=== PATIENT | female | born 1960 | race Caucasian/White ===

== ENCOUNTER 2025-04-24 21:55 | Inpatient (IN) | payer OTHER, SELFPAY ==
[2025-04-24 14:06] VITALS: BP 116/71
[2025-04-24 16:44] VITALS: BP 102/68
[2025-04-24 17:37] VITALS: BMI 31.9
--- NOTE | 2025-04-24 17:40 | ED.GENMED ---
History of Present Illness
<Cong Rogers PA-C - Last Filed: 04/24/25 20:04>
General
Chief Complaint: Urinary Symptoms
Source: patient
Exam Limitations: none
Time Seen by Provider: 04/24/25 17:24
History of Present Illness
History of Present Illness:
64-year-old female with history of factor cholesterolemia, hypothyroid and anxiety depression presents complaining of about 3 days worth of urinary symptoms of urgency dysuria dark urine and bilateral flank pain. She notes chills but denies any
fever. No vomiting. [facility] work drawn there which demonstrated elevated white blood cell count and urinalysis showed nitrite positive urine. They were concerned about kidney infection and they sent
her here. Patient has never had a kidney stone in the past. She denies chest pain or shortness of breath but admits that she is in a lot of pain. The pain is more so on the right flank than the left but it is bilateral. She has a listed
penicillin allergy however this is just a rash
Phy Exam
<Cong Rogers PA-C - Last Filed: 04/24/25 20:04>
Physical Exam
Physical Exam:
General: Slightly uncomfortable female no acute respiratory distress
HEENT: Normal cephalic atraumatic mucosa dry
Heart: Regular rate and rhythm lungs: Clear no wheeze abdomen soft but tender to the bilateral flanks and lower quadrants bilaterally
Extremities: No cyanosis or significant edema
Course
<Cong Rogers PA-C - Last Filed: 04/24/25 20:04>
Orders/Labs/Results
Orders:
Orders
04/24/25 16:58
Urinalysis Reflex To Culture Urgent
Date Specimen was Collected: 04/24/25
Time Specimen was Collected: 14:05
Urine Microscopic Reflex Cult Urgent
Urine Culture Urgent
DUSTIN Source: U
Specimen Description:
Date Specimen was Collected: 04/24/25
Time Specimen was Collected: 14:05
04/24/25 17:38
0.9% Sodium Chloride 1000 ml [Nss] 1,000 ml IV BOLUS
04/24/25 17:39
CT Abd/pelvis W Iv Cont Urgent
Comment:
Reason For Exam: flank pain, urinary symptoms
04/24/25 17:46
Complete Blood Count/With Diff Urgent
Comprehensive Metabolic Panel Urgent
Lactic Acid Urgent
Lipase Urgent
Blood Culture Q30M
DUSTIN Source: Blood/Venous
Specimen Description:
Blood Culture Q30M
DUSTIN Source: Blood/Venous
Specimen Description:
04/24/25 19:50
HYDROmorphone [Dilaudid] 0.5 mg IV NOW STA
04/24/25 19:51
Piperacillin/Tazo 3.375 Gram [Zosyn] 3.375 gram in 50 ml IV NOW
04/24/25 20:00
Add On- LAB Urgent
Tests Added?: lipase
Abnormal Lab Results
04/24/25 04/24/25
16:58 17:46
WBC 12.5 H 10^3/uL
(4.8-10.8)
Abs Immat Gran (auto) 0.1 H 10^3/uL
(0-0.05)
Absolute Neuts (auto) 10.0 H 10^3/uL
(1.4-6.5)
Absolute Monos (auto) 1.0 H 10^3/uL
(0.1-0.6)
Neutrophils % 79.5 H %
(42.2-75.2)
Lymphocytes % 11.4 L %
(20.5-51.1)
Sodium 133 L mmol/L
(135-145)
Potassium 3.4 L mmol/L
(3.5-5.1)
Chloride 96 L mmol/L
(98-107)
BUN 18 H mg/dl
(7-17)
Creatinine 1.1 H mg/dL
(0.6-1.0)
Glucose 147 H mg/dl
(70-99)
Total Bilirubin 4.7 H mg/dl
(0.2-1.3)
AST 1063 H* U/L
(14-36)
ALT 619 H* U/L
(0-35)
Alkaline Phosphatase 201 H U/L
(38-126)
Ur Occult Blood Reflex 3+ A
(Negative)
Urine Bilirubin 2+ A
(Negative)
Urine Urobilinogen 3+ A
(Neg - 1+)
Leukocyte Esterase Rfl 2+ A
(Negative)
Urine RBC 3-6 A /HPF
(0-2)
Urine WBC (Reflex) 11-15 A /HPF
(0-5)
Urine Bacteria (Reflex) Moderate A
(Negative)
Urine Albumin (Reflex) 3+ A
(Neg - Trace)
04/24/25 17:46
04/24/25 17:46
Vital Signs
Initial and Last Documented VS:
Initial Vital Signs
Temp Pulse Resp Pulse Ox
98.4 F 105 19 98
04/24/25 14:00 04/24/25 14:00 04/24/25 14:00 04/24/25 14:00
Last Documented Vital Signs
Temp Pulse Resp BP Pulse Ox
98.4 F 97 17 120/64 97
04/24/25 14:00 04/24/25 19:45 04/24/25 19:45 04/24/25 18:00 04/24/25 18:45
Tariklt;Brijesh Hammond, DO - Last Filed: 04/24/25 21:01>
Orders/Labs/Results
Orders:
Orders
04/24/25 16:58
Urinalysis Reflex To Culture Urgent
Date Specimen was Collected: 04/24/25
Time Specimen was Collected: 14:05
Urine Microscopic Reflex Cult Urgent
Urine Culture Urgent
DUSTIN Source: U
Specimen Description:
Date Specimen was Collected: 04/24/25
Time Specimen was Collected: 14:05
04/24/25 17:38
0.9% Sodium Chloride 1000 ml [Nss] 1,000 ml IV BOLUS
04/24/25 17:39
CT Abd/pelvis W Iv Cont Urgent
Comment:
Reason For Exam: flank pain, urinary symptoms
04/24/25 17:46
Complete Blood Count/With Diff Urgent
Comprehensive Metabolic Panel Urgent
Lactic Acid Urgent
Lipase Urgent
Blood Culture Q30M
DUSTIN Source: Blood/Venous
Specimen Description:
Blood Culture Q30M
DUSTIN Source: Blood/Venous
Specimen Description:
04/24/25 19:50
HYDROmorphone [Dilaudid] 0.5 mg IV NOW STA
04/24/25 19:51
Piperacillin/Tazo 3.375 Gram [Zosyn] 3.375 gram in 50 ml IV NOW
04/24/25 20:00
Add On- LAB Urgent
Tests Added?: lipase
Abnormal Lab Results
04/24/25 04/24/25
16:58 17:46
WBC 12.5 H 10^3/uL
(4.8-10.8)
Abs Immat Gran (auto) 0.1 H 10^3/uL
(0-0.05)
Absolute Neuts (auto) 10.0 H 10^3/uL
(1.4-6.5)
Absolute Monos (auto) 1.0 H 10^3/uL
(0.1-0.6)
Neutrophils % 79.5 H %
(42.2-75.2)
Lymphocytes % 11.4 L %
(20.5-51.1)
Sodium 133 L mmol/L
(135-145)
Potassium 3.4 L mmol/L
(3.5-5.1)
Chloride 96 L mmol/L
(98-107)
BUN 18 H mg/dl
(7-17)
Creatinine 1.1 H mg/dL
(0.6-1.0)
Glucose 147 H mg/dl
(70-99)
Total Bilirubin 4.7 H mg/dl
(0.2-1.3)
AST 1063 H* U/L
(14-36)
ALT 619 H* U/L
(0-35)
Alkaline Phosphatase 201 H U/L
(38-126)
Ur Occult Blood Reflex 3+ A
(Negative)
Urine Bilirubin 2+ A
(Negative)
Urine Urobilinogen 3+ A
(Neg - 1+)
Leukocyte Esterase Rfl 2+ A
(Negative)
Urine RBC 3-6 A /HPF
(0-2)
Urine WBC (Reflex) 11-15 A /HPF
(0-5)
Urine Bacteria (Reflex) Moderate A
(Negative)
Urine Albumin (Reflex) 3+ A
(Neg - Trace)
04/24/25 17:46
04/24/25 17:46
Vital Signs
Initial and Last Documented VS:
Initial Vital Signs
Temp Pulse Resp Pulse Ox
98.4 F 105 19 98
04/24/25 14:00 04/24/25 14:00 04/24/25 14:00 04/24/25 14:00
Last Documented Vital Signs
Temp Pulse Resp BP Pulse Ox
98.4 F 97 17 120/64 97
04/24/25 14:00 04/24/25 19:45 04/24/25 19:45 04/24/25 18:00 04/24/25 18:45
<Cong Rgoers PA-C - Last Filed: 04/24/25 20:04>
MDM/Problems Addressed
Differential Diagnosis Includes:
Patient with urinary symptoms overall ill sensation and flank pain. Concern for UTI versus pyelonephritis versus kidney stone versus sepsis check labs including lactic acid and blood culture urinalysis with culture pending. Will order CT scan
fluids ordered
<Cong Rogers PA-C - Last Filed: 04/24/25 20:04>
*Pulse Oximetry
SaO2: 94
Patient hypoxic: no
*Critical Care Note
Total Time (30-74mins, 75-104mins- exclusive of procedures): Not Applicable
<Cong Rogers PA-C - Last Filed: 04/24/25 20:04>
Update Note
Update Note:
CT reviewed. Demonstrates acute cystitis with acute cholecystitis and possible cholangitis. Patient quite uncomfortable. Dilaudid ordered for pain. Fluids ordered Zosyn ordered. Patient notes she has a penicillin allergy which years ago when
she was a child she got a rash. She believes she has had a similar equivalent to this as an adult and never had an issue. Zosyn ordered.
ED Attending Note
<Cong Rogers PA-C - Last Filed: 04/24/25 20:04>
-
Portions of this chart may have been created with voice recognition software.� Occasional wrong word or��sound alike� substitutions may have occurred due to the inherent limitations of voice recognition software.
<Brijesh Hammond DO - Last Filed: 04/24/25 21:01>
ED Attending Note
Patient seen and examined by attending physician: Yes
I performed the substantive portion of visit, reviewed & personally made and approve the management plan that is documented in note by myself or MEGAN.: Yes
ED Attending Note:
Seen with PA examined independently subacute onset of abdominal pain nausea, LFTs noted CT report noted
Discharge Plan
Departure
Patient Disposition: Admit
Date of Disposition: 04/24/25
Time of Disposition: 20:04
Presentation/result/management discussed w/ accepting MD/DO: Hospitalist
Discharge Problem:
Acute cholecystitis
Referrals:
NONE,* [Family Provider, Internal Medicine]
Interventions
Interventions:
*General Assessment Last Done: 04/24/25 14:04
*Neglect/Abuse Screening Last Done: 04/24/25 14:04
*ED COVID-19 Vaccine History Last Done: 04/24/25 14:04
*ED Influenza Vaccine History Last Done: 04/24/25 14:04
[facility] Fall Risk Assessment Tool Last Done: 04/24/25 17:37
*Risk Screen - Suicide (C-SSRS) Last Done: 04/24/25 14:04
ED-Female Genitourinary Assessment Last Done: 04/24/25 17:31
ED- Pulmonary Assessment Last Done: 04/24/25 17:31
Discharge Date and Time
Print Language: HONDURAN
[2025-04-24] MEDS: NSS 1000 IV (17:45)
[2025-04-24 17:56] LABS: Hematocrit 40.7 % (37.0-47.0); Hemoglobin 13.9 g/dL (12.0-16.0); Mean Corp Hgb Conc. 34.2 g/dL (33.0-37.0); Mean Corpuscular Volume 89.3 fL (81.0-99.0); Nucleated Red Blood Cells % 0 %; Platelet Count 230 10^3/uL (130-400); Red Cell Dist. Width 13.7 % (11.5-14.5)
[2025-04-24 18:00] VITALS: BP 120/64
[2025-04-24 18:07] LABS: Urine Character Clear (Clear)
[2025-04-24 18:15] LABS: ALT (SGPT) 619 U/L (0-35); Albumin 4.4 g/dl (3.5-5.0); Alkaline Phosphatase 201 U/L (38-126); Blood Urea Nitrogen 18 mg/dl (7-17); Calcium 9.4 mg/dl (8.4-10.2); Carbon Dioxide 26 mmol/L (22-30); Chloride 96 mmol/L (98-107); Estimated Creatinine Clearance 52 ml/min; Glucose 147 mg/dl (70-99); Potassium 3.4 mmol/L (3.5-5.1); Sodium 133 mmol/L (135-145); Total Protein 6.7 g/dl (6.3-8.2); eGFR 56.81
[2025-04-24 18:26] LABS: AST (SGOT) 1063 U/L (14-36)
[2025-04-24 18:31] LABS: Urine Squamous Cell >30 /LPF (Few)
[2025-04-24] MEDS: ZOSYN 50 IV (19:55)
[2025-04-24] MEDS: DILAUDID 0.5 MG IV ×2 (19:56→21:21)
[2025-04-24 21:07] LABS: Lipase > 4000 U/L (23-300)
--- NOTE | 2025-04-24 21:16 | HPS.HSE ---
Family Physician
-
Family Physician: * NONE
Chief Complaint
-
Abdominal pain and urinary symptoms
History of Present Illness
This is a 64-year-old with past medical history significant for status post AUTOMATIC TOE LASTER shunt, hypertension and hyperlipidemia who presents to the emergency department with worsening abdominal pain.
Patient reports that she has had intermittent right upper quadrant pain for the last month. However over the last 3 days she had severe right upper quadrant abdominal pain but also diffuse abdominal pain with associated nausea vomiting. She denies
any diarrhea. She denies any fevers or chills. She denies any changes to the color of her urine or stool.
Patient report history of recurrent urinary tract infections and states that recently she has had urinary urgency and hesitancy as well as dysuria.
On arrival in the emergency department she was afebrile, blood pressure was 120/64 with a pulse rate of 97 and oxygen saturation of 97% on room air.
White count was 12.5 with a hemoglobin of 13.9 platelet of 230. Sodium was 133 potassium 3.4 chloride 96 bicarb 26 BUN and creatinine were normal with a glucose of 147. Total bilirubin is up to 4.7 with AST of 1000 and ALT of 619 and alk phos of
200. Lipase is pending.
CT of the abdomen and pelvis showing acute cholecystitis with mild pericholecystic fluid and inflammation, there is also acute cystitis with mild diffuse urinary bladder wall thickening. There is mild biliary dilation and bile duct wall enhancement
possibly consistent with cholangitis. Mild diffuse hepatic steatosis.
Medical History
Past Medical History
Past Medical History: Reports Hypercholesterolemia and Other (Insomnia)
Past Surgical History: Reports Brain (AUTOMATIC TOE LASTER shunt placement with revision), (X 2), Gynocological (Hysterectomy) and Orthopedic (Cervical spine fusion)
Social History
Tobacco: Non-smoker
Alcohol: Occasional
Drug: None
Living: With Family
Family History
Family History: Not pertinent
Allergies / Home Medications
Allergies reflects when Allergies were last updated in [facility].
Home Medications with original date entered in [facility]
Allergy/Medication List:
Allergies
Allergy/AdvReac Type Severity Reaction Status Date / Time
Penicillins Allergy Hives Verified 04/24/25 14:02
sulfamethoxazole (From Allergy Hives Verified 04/24/25 14:02
Bactrim)
trimethoprim (From Bactrim) Allergy Hives Verified 04/24/25 14:02
Zolpidem 12.5 mg tablets, 12.5 mg p.o. at bedtime
Rosuvastatin 10 mg tablets, 10 mg p.o. at bedtime
Review of Systems
-
Constitutional: Reports No Symptoms
EENT: Reports No Symptoms
Respiratory: Reports No Symptoms
Cardiac: Reports No Symptoms
Abdomen/GI: Reports Abdominal Pain and Vomiting
: Reports Dysuria and Urgency
Musculoskeletal: Reports No Symptoms
Skin: Reports No Symptoms
Neurological: Reports No Symptoms
Endocrine: Reports No Symptoms
Hematologic/Lymphatic: Reports No Symptoms
Psych: Reports No Symptoms
Physical Exam
Vital Signs
Vital Signs
Temp Pulse Resp BP Pulse Ox
98.4 F 97 17 120/64 97
04/24/25 14:00 04/24/25 19:45 04/24/25 19:45 04/24/25 18:00 04/24/25 18:45
Physical Exam
General: Well Developed, Well Nourished and No Apparent Distress
HEENT: NormoCephalic, Moist mucous membranes and Atraumatic
Respiratory: Clear
Cardiac: S1/S2 and Regular Rhythm; No Murmur or Rub
GI: Soft, Non Tender, Non Distended and Normal Bowel Sounds; No Organomegaly
Rectal: Deferred by Provider
Musculoskeletal: No Clubbing, No Cyanosis and No Edema
Skin: No Rash
Neuro: AO x 3 and Nonfocal/grossly intact
Laboratory Results
-
04/24/25 17:46
04/24/25 17:46
Laboratory Results
Lactic Acid 1.6 mmol/L (0.7-2.0) 04/24/25 17:46
Total Bilirubin 4.7 mg/dl (0.2-1.3) H 04/24/25 17:46
AST 1063 U/L (14-36) H* 04/24/25 17:46
ALT 619 U/L (0-35) H* 04/24/25 17:46
Alkaline Phosphatase 201 U/L (38-126) H 04/24/25 17:46
Lipase > 4000 U/L (23-300) H* 04/24/25 17:46
Data Reviewed
-
CT Scan: Report Reviewed by me
Lab Data: Labs Reviewed by me
Old Records: Reviewed
Impression/Plan
-
IMPRESSION:
64-year-old with past medical history of AUTOMATIC TOE LASTER shunt, hypertension, hyperlipidemia who presents to the emergency department with abdominal pain as well as urinary symptoms and found to have acute cystitis, possible cholangitis with elevated LFTs and
bilirubin as well as acute cystitis on the CT scan.
PLAN:
Acute cholecystitis -definite high-grade cholecystitis on CT scan with a WBC of 12.4. She is hemodynamically stable and nontoxic-appearing. With the elevation seen at the bilirubin and AST and ALT there is concern for biliary obstruction and
possible complicating cholangitis. Patient reports history of penicillin allergy was over 30 years ago. She also states that since her AUTOMATIC TOE LASTER shunt she has had multiple MRIs.
� Admit to MedSurg
� N.p.o. for now
� IV Zosyn
� Blood cultures sent
� Pain control and antiemetics
� IV fluids with D5 normal saline
� MRCP
� GI consultation
� Surgery consultation
Cystitis�acute cystitis with urinary symptoms. No stones in the gallbladder and no urinary obstruction patient will be fine with IV antibiotics
� Urine culture
� Continue IV Zosyn as above
DVT PPX - lovenox sq
Code status - Full Code
[2025-04-24 22:11] VITALS: BMI 30.8
[2025-04-24] MEDS: KCL 160 MEQ IV (22:14)
[2025-04-24] MEDS: D5/0.9% SODIUM CHLORIDE 1000 IV (22:14)
[2025-04-24] MEDS: AMBIEN 10 MG PO (22:15)
[2025-04-24 23:00] VITALS: BP 112/69
--- NOTE | 2025-04-24 23:30 | PTCARENOTE ---
Pt is a 64-year-old arrived from ED at 21:50. PMH significant for status post BRAZER INDUCTION shunt, HTN and HLD who presents to the ED with worsening abdominal pain. Pt AOx3, pain assessed and patient states no pain meds needed at present, bed in a low
position, call light in reach, care ongoing
[2025-04-25] MEDS: ZOSYN 50 IV ×4 (01:17→20:23)
[2025-04-25] MEDS: DILAUDID 1 MG IV ×4 (01:20→20:18)
[2025-04-25 06:23] LABS: Hematocrit 36.0 % (37.0-47.0); Hemoglobin 12.4 g/dL (12.0-16.0); Mean Corp Hgb Conc. 34.4 g/dL (33.0-37.0); Mean Corpuscular Volume 89.1 fL (81.0-99.0); Platelet Count 198 10^3/uL (130-400); Red Cell Dist. Width 13.6 % (11.5-14.5)
--- NOTE | 2025-04-25 06:26 | CON.GI ---
Addendum entered and electronically signed by Edna Fortune MD 04/25/25 16:19:
Ultrasound reviewed and is negative for any obvious CBD stone or ductal dilatation. Given that her LFTs have markedly improved she may have passed a stone will start her on clear liquids and timing of cholecystectomy will be per surgery. If her
LFTs start to trend up again then will transfer for EUS and ERCP to [place].
04/25 US IMPRESSION: Gallbladder sludge. Borderline thickened gallbladder wall. No findings to suggest pericholecystic fluid or biliary tract dilatation. Negative sonographic Allen's sign.
No findings to confirm choledocholithiasis.
Findings suggesting diffuse fatty liver.
Addendum entered and electronically signed by Edna Fortune MD 04/25/25 15:11:
I saw and examined the patient.
The CHRISTIAN SCIENCE PRACTITIONER's note was reviewed and I agree with the note.
Comment: This is a 64-year-old female with past medical history as listed below who presented to the emergency room with symptoms dysuria and also was having abdominal pain and was noted to have leukocytosis, fever, positive UTI and also was noted
to have abnormal LFTs and CT showed findings consistent with probable cholangitis and cholecystitis and cystitis. She has been started on antibiotics. Her lipase was also elevated at greater than [address] shows probable chronic pancreatitis
although she has no prior history of pancreatitis. She still has epigastric and right upper quadrant pain but her pain is improving and her LFTs have actually been trending down. Unfortunately we are unable to get an MRI with MRCP she has a RESEARCH ASSISTANT
shunt and the waste management recycling technician that is able to check it after the MRI was unavailable.
Assessment and plan abdominal pain, fever with abnormal LFTs and elevated lipase most likely secondary to acute cholecystitis and probable cholangitis with choledocholithiasis with acute GS pancreatitis. Her LFTs have markedly improved suggesting
possible passed stone. Continue treatment for pancreatitis with IV fluids with lactated Ringer's and continue to monitor I's and O's closely. Unable to perform EUS since Dr. Awan is away this week and unable to get an MRI because of the RESEARCH ASSISTANT shunt.
Will follow-up on the ultrasound and if she has evidence of obvious CBD stone can do ERCP tomorrow but if it is inconclusive then may need to transfer for possible EUS to [place] plus or minus ERCP based on EUS, trend labs with LFTs and lipase. Noted
input from Dr. Malagon also. Continue to keep her n.p.o. for now and continue Zosyn, she also has a UTI.
Original Note:
Consultation
-
Date/Time Consultation Requested: 04/24/25 220
Date/Time Consultation Performed: 04/25/25 0900
Requesting Provider: Elissa Goel MD
Performing Provider: MAC De Paz, Edna Fotrune MD
Reason for Consultation: increased LFT's eval cholangitis
Medical History
Chief Complaint / HPI
Chief Complaint: abdominal pain
History of Present Illness:
Pt is a 64yo with hx HTN, hyperlipidemia, insomnia, colon polyp, RESEARCH ASSISTANT shunt with revision for hydrocephalus, prior cervical spinal fusion, hysterectomy with onset of abdominal pain. She if from [place] visit father who is on hospice. She report
recent UTI with urgency and dysuria and admit to dark urine with ? blood. On admission noted with WBC 12,500, hbg 13,9, Na 133, K 3.4, creat 1.1, bili 4.7, AST 1063, ALT 619, alk phos 201 and lipase >4000. UA noted with + bili, + WBC, moderate
bacteremia. She completed CT on admission with concern for acute cystitis, acute cholecystitis and biliary dilation with possible cholangitis. She was also noted with hepatic steatosis, mild ascites, chronic pancreatitis, SM, RESEARCH ASSISTANT shunt and DDD. No
prior hx pancreatitis, family hx pancreatic issues or ETOH use.
In review with patient she admits to intermittent abdominal pain for a few weeks. Pain now 10/10 on admission with worsening RUQ and epigastric pain. Worse with movement and improved with pain meds. She also admits to dark urine. She has
some nausea and vomiting on Thursday that has now improved. She also admits to feeling of constipation but denies dysphagia, GERD, diarrhea, or rectal bleeding. No NSAID or anticoagulation use. No wt loss. Pt was for MRI but unable to do with hx
RESEARCH ASSISTANT shunt.
.
Past Medical History
Past Medical History: HTN, Hypercholesterolemia and Other (insomnia, colon polyps)
Past Surgical History: , Gynecological (hysterectomy), Orthopedic (cervical spinal fusion) and Other (RESEARCH ASSISTANT shunt with revision for hydrocephalus )
Social History
Tobacco: Non-Smoker
Alcohol: Occasional (rare)
Drug: None
Personal:
Living: With Family
Employment: Retired
Family History
Family History: Other (mother with bladder CA)
Allergies / Home Medications
Allergy/AdvReac Type Severity Reaction Status Date / Time
Penicillins Allergy Hives Verified 04/24/25 14:02
sulfamethoxazole (From Allergy Hives Verified 04/24/25 14:02
Bactrim)
trimethoprim (From Bactrim) Allergy Hives Verified 04/24/25 14:02
Review of Systems
-
History Source: Patient
Constitutional: Reports Fever (100.7 )
EENT: Reports No Symptoms
Respiratory: Reports No Symptoms
Abdomen/GI: Reports Abdominal Pain, Nausea, Vomiting and Constipated
: Reports Dysuria, Urgency and Dark Urine
Musculoskeletal: Reports No Symptoms
Neurological: Reports Weakness
Endocrine: Reports No Symptoms
Hematologic/Lymphatic: Reports No Symptoms
Vital Signs
Temp Pulse Resp BP Pulse Ox
98.1 F 97 16 112/69 94
04/24/25 23:00 04/24/25 23:00 04/24/25 23:00 04/24/25 23:00 04/24/25 23:00
Physical Exam
Exam
General: Other (appears weak with abdominal pain )
HEENT: Normocephalic, Anicteric and Other (dry mouth)
Respiratory: Clear
Cardiac: Other (tachy )
GI: Soft, Non Distended and Tender (epigastric and RUQ )
Musculoskeletal: No Clubbing and No Cyanosis
Skin: Warm and Dry
Neuro: Awake, Alert and AO x 3
Psych: Calm
Results
WBC 9.0 10^3/uL (4.8-10.8) 04/25/25 05:51
Hgb 12.4 g/dL (12.0-16.0) 04/25/25 05:51
Hct 36.0 % (37.0-47.0) L 04/25/25 05:51
MCV 89.1 fL (81.0-99.0) 04/25/25 05:51
Plt Count 198 10^3/uL (130-400) 04/25/25 05:51
Absolute Neuts (auto) 10.0 10^3/uL (1.4-6.5) H 04/24/25 17:46
Sodium 133 mmol/L (135-145) L 04/24/25 17:46
Potassium 3.4 mmol/L (3.5-5.1) L 04/24/25 17:46
Chloride 96 mmol/L (98-107) L 04/24/25 17:46
Carbon Dioxide 26 mmol/L (22-30) 04/24/25 17:46
BUN 18 mg/dl (7-17) H 04/24/25 17:46
Creatinine 1.1 mg/dL (0.6-1.0) H 04/24/25 17:46
Calcium 9.4 mg/dl (8.4-10.2) 04/24/25 17:46
Total Bilirubin 4.7 mg/dl (0.2-1.3) H 04/24/25 17:46
AST 1063 U/L (14-36) H* 04/24/25 17:46
ALT 619 U/L (0-35) H* 04/24/25 17:46
Alkaline Phosphatase 201 U/L (38-126) H 04/24/25 17:46
Lipase > 4000 U/L (23-300) H* 04/24/25 17:46
Diagnostic Image Results:
04/24/25 CT Abd/pelvis W Iv Cont
1. ACUTE CYSTITIS with mild diffuse urinary bladder wall thickening and mild perivesical inflammation.
2. ACUTE CHOLECYSTITIS with mild pericholecystic fluid and inflammation.
3. Mild biliary dilatation and bile duct wall enhancement (possibly cholangitis).
4. Mild diffuse hepatic steatosis.
5. Minimal perihepatic ascites.
6. Chronic pancreatitis.
7. Mild splenomegaly.
8. Ventriculoperitoneal shunt catheter in place.
9. Moderate discogenic degenerative disease at L2/L3.
Prior GI Procedures:
EGD: in [place] recall stable
Colonoscopy: in [place] recall polyps
Assessment / Plan
-
Pt is a 64yo with hx HTN, hyperlipidemia, insomnia, colon polyps, RESEARCH ASSISTANT shunt with revision for hydrocephalus, prior cervical spinal fusion, hysterectomy with onset of abdominal pain. She also report recent UTI with urgency and dysuria. On admission
noted with WBC 12,500, hbg 13,9, Na 133, K 3.4, creat 1.1, bili 4.7, AST 1063, ALT 619, alk phos 201 and lipase >4000. UA noted with + bili, + WBC, moderate bacteremia. She completed CT on admission with concern for acute cystitis, acute
cholecystitis and biliary dilation with possible cholangitis. She was also noted with hepatic steatosis, mild ascites, chronic pancreatitis, SM, RESEARCH ASSISTANT shunt and DDD. No hx pancreatitis in past. No family hx pancreatitis or ETOH use.
-abdominal pain with increased LFT's and lipase concern for possible cholangitis vs Gallstone pancreatitis
-leukocytosis/low grade fever
-Ct concern for cystitis
-additional CT finding hepatic steatosis, mild ascites, chronic pancreatitis, SM
-hyponatremia
-hypokalemia
-mild VANCE on admission
other med problems:
HTN, hyperlipidemia, insomnia, RESEARCH ASSISTANT shunt with revision, prior cervical spinal fusion, hysterectomy
PLAN:
etiology of symptoms related to cholecystis, gallstone panc, with possible cystitis vs other
reviewed with MRI unable to completed with RESEARCH ASSISTANT shunt, No EUS availability over next week at
will check US to see if any visible CBD stones noted
if stone noted with review with Dr. Donovan for ERCP
reviewed with Dr. malagon and Dr. Stover may need to consider transfer
will increased IVF to LR at 250ml and give Fluid bolus now
cont pain control per hospitalist
trend labs
NPO
cont abx
appreciate surgical consult
hospitalist to eval for cystitis possible concurrent UTI
-
-
Thank you for consultation and allowing me to participate in the patient's care. Please call the payroll consultant GI physician during the after hours with any questions or concerns.
[2025-04-25 06:39] LABS: INR 1.48; PT 18.1 Sec (11.4-14.6)
[2025-04-25 06:44] LABS: ALT (SGPT) 383 U/L (0-35); AST (SGOT) 377 U/L (14-36); Albumin 3.4 g/dl (3.5-5.0); Alkaline Phosphatase 180 U/L (38-126); Blood Urea Nitrogen 13 mg/dl (7-17); Calcium 8.6 mg/dl (8.4-10.2); Carbon Dioxide 25 mmol/L (22-30); Chloride 106 mmol/L (98-107); Estimated Creatinine Clearance 72 ml/min; Glucose 135 mg/dl (70-99); Magnesium 1.8 mg/dl (1.6-2.3); Potassium 3.7 mmol/L (3.5-5.1); Sodium 137 mmol/L (135-145); Total Protein 5.7 g/dl (6.3-8.2); eGFR > 60.00
--- NOTE | 2025-04-25 07:30 | W.PN.HOSP.TC ---
Today's Communication/Plan
-
Ultrasound abdomen.
Pain control.
Keep NPO.
Monitor liver enzymes
May transfer to tertiary center
Assessment / Plan
Assessment / Plan
Impression:
64-year-old with past medical history of IOS DEVELOPER shunt, hypertension, hyperlipidemia who presents to the emergency department with abdominal pain as well as urinary symptoms and found to have acute cystitis, possible cholangitis with elevated LFTs and
bilirubin as well as acute cystitis on the CT scan.
Assessment/plan:
Acute Cholecystitis/acute cholangitis
High-grade cholecystitis confirmed on imaging.
On arrival: afebrile, BP 120/64, HR 97, SpO? 97% RA.
Initial labs: WBC 12.5, Hgb 13.9, Plt 230. Electrolytes: Na 133, K 3.4, Cl 96, HCO? 26. BUN/Cr normal. Glucose 147.
LFTs: Total bilirubin 4.7, AST 1000, ALT 619, Alk Phos 200. Lipase >4000
CT abdomen/pelvis: acute cholecystitis with mild pericholecystic fluid and inflammation; mild biliary dilation and bile duct wall enhancement (possible cholangitis); mild diffuse hepatic steatosis; acute cystitis with mild bladder wall thickening.
Hemodynamically stable, nontoxic-appearing. Concern for biliary obstruction and possible cholangitis given elevated bilirubin and transaminases.
Allergy: remote penicillin allergy (>30 years ago).
History: IOS DEVELOPER shunt, multiple MRIs tolerated.
Plan:
Admitted to [facility]
NPO for now
IV Zosyn
Blood cultures
Pain control and antiemetics
IV fluids.
MRCP was not able to be done secondary to IOS DEVELOPER shunt, ultrasound abdomen pending
GI consulted/ Surgery consulted, possible transfer to tertiary center.
Acute pancreatitis.
Secondary to above.
Elevated lipase.
No CT finding of acute pancreatitis.
Continue n.p.o., IV fluid, IV antibiotics
Hyponatremia.
Improved
Hypokalemia.
Repleted
Acute Cystitis
cystitis noted on imaging; no stones, no urinary obstruction.
Plan:
Urine culture
Continue IV Zosyn as above
CODE STATUS: Full code
DVT prophylaxis: Lovenox
Diet: NPO
Disposition: Ultrasound abdomen pending
Total time spent on today's encounter was 55 minutes which included time spent in counseling the patient/family regarding diagnosis and treatment plan as listed above, goals of care, and symptom management. Case was discussed with nursing staff,
specialists, and care coordinators/case management. All labs and imaging personally reviewed by me. Remainder the time spent in detailed review of previous records, lab data, imaging, and other medical provider documentation.
Part of this note was created using voice recognition system. Occasional wrong word or �sound alike� substitutions may have inadvertently occurred due to the inherent limitations of voice recognition software. If noted kindly bring it to my
attention for correction.
Anticipated Discharge: > 48 hours
Subjective/Interval History
-
Date of Service: April 25, 2025
Patient seen and examined at bedside, denies any chest pain now (had a chest pain yesterday) or shortness of breath, still with significant abdominal pain.
Objective Data
-
Labs:
Laboratory Results
04/25/25
05:51
WBC 9.0
Hgb 12.4
Hct 36.0 L
Plt Count 198
PT 18.1 H
INR 1.48
Sodium 137
Potassium 3.7
Chloride 106
Carbon Dioxide 25
BUN 13
Creatinine 0.8
Glucose 135 H
Calcium 8.6
Total Bilirubin 3.6 H
AST 377 H
ALT 383 H
Alkaline Phosphatase 180 H
Vital Signs:
Vital Signs
Temp Pulse Resp BP Pulse Ox
98.1 F 97 16 112/69 94
04/24/25 23:00 04/24/25 23:00 04/24/25 23:00 04/24/25 23:00 04/24/25 23:00
I&O
04/24/25 04/25/25 04/26/25
06:59 06:59 06:59
Intake Total 850 / 850
Balance 850 / 850
Physical Exam
-
General: Well Developed, Well Nourished, No Apparent Distress and Comfortable
HEENT: Normocephalic, Atraumatic, Moist Mucous Membranes, No Ptosis, PERRLA and Nose Appears Normal
Respiratory: Clear to Auscultation and Non Labored Respirations
Cardiac: Regular Rhythm and S1/S2
Breast: Deferred by me
GI: Soft, Nondistended, Normal Bowel Sounds and Tender (Right upper quadrant)
Genito-urinary: No Costovertebral Tender
Musculoskeletal: No Clubbing, No Cyanosis and No Edema
Skin: Warm
Neuro: Awake, Alert, Oriented, AO x 3 and No Motor Deficits
Psych: Calm
Data Reviewed
-
Diagnostic Radiology: Image personally visualized and interpreted and Report Reviewed by me
CT Scan: Image personally visualized and interpreted and Report Reviewed by me
Ultrasound: Image personally visualized and interpreted and Report Reviewed by me
MRI: Image personally visualized and interpreted and Report Reviewed by me
Medical Tests (Nuc Med, Echo etc): Image personally visualized and interpreted and Report Reviewed by me
Labs: Labs Reviewed by me
Old Records: Reviewed
[2025-04-25 07:40] VITALS: BP 104/68
[2025-04-25] MEDS: NSS 500 IV (09:58)
[2025-04-25] MEDS: D5/0.9% SODIUM CHLORIDE IV (10:04)
[2025-04-25] MEDS: LR 1000 IV ×2 (10:47→14:26)
--- NOTE | 2025-04-25 11:17 | CON.GS ---
Consultation
-
Date/Time Consultation Requested: 04/24/2025 8 PM
Date/Time Consultation Performed: 04/25/2025 8 AM
Requesting Provider: Hospitalist
Performing Provider: Dr. Malagon
Reason for Consultation: Acute cholecystitis
Medical History
-
Chief Complaint: Upper abdominal pain
History of Present Illness:
This is a 64-year-old female with history significant for hydrocephalus status post DIRECTOR MACHINE shunt with previous revisions, hysterectomy who presents with a 4-day history of severe epigastric/right upper quadrant abdominal pain. She is here from [place]
taking care of her father who is on hospice, unfortunately she was not able to get someone to help her until yesterday after which she presented to our ER. On arrival she was also noted to have a UTI with dysuria and dark urine with possible blood,
she does have a history of cystitis. She was also noted to have an elevated bilirubin to 4.7 as well as elevated LFTs into the thousands. Most concerning was her lipase over 4000. She underwent a CT scan which demonstrated a thickened bladder
concerning for acute cystitis as well as inflamed gallbladder concerning for acute cholecystitis though no gallstones are noted. She is also noted to have some biliary dilation and concern for cholangitis. On my read there is inflammation in the
head of the pancreas consistent with pancreatitis. Her DIRECTOR MACHINE shunt also enters the abdomen in the right upper quadrant.
Past Medical History
Past Medical History: Other (Hydrocephalus)
Past Surgical History: Other (DIRECTOR MACHINE shunt, hysterectomy)
Social History
Tobacco: Non-Smoker
Alcohol: None
Drug: None
Living: Alone
Family History
Family History: Reviewed & Not Pertinent
Allergies / Home Medications
Allergy/AdvReac Type Severity Reaction Status Date / Time
Penicillins Allergy Hives Verified 04/24/25 14:02
sulfamethoxazole (From Allergy Hives Verified 04/24/25 14:02
Bactrim)
trimethoprim (From Bactrim) Allergy Hives Verified 04/24/25 14:02
Review of Systems
-
All other systems: Negative unless noted
A 10 point review of systems was completed, and was negative except as per HPI.
Physical Exam
Vital Signs
Temp Pulse Resp BP Pulse Ox
100.7 F H 102 16 104/68 91
04/25/25 07:40 04/25/25 07:40 04/25/25 07:40 04/25/25 07:40 04/25/25 07:40
04/24/25 04/25/25 04/26/25
06:59 06:59 06:59
Actual Weight 78.789 kg
Body Mass Index (BMI) 30.8
Lab Results
04/25/25 05:51
04/25/25 05:51
WBC 9.0 10^3/uL (4.8-10.8) 04/25/25 05:51
Hgb 12.4 g/dL (12.0-16.0) 04/25/25 05:51
Hct 36.0 % (37.0-47.0) L 04/25/25 05:51
Plt Count 198 10^3/uL (130-400) 04/25/25 05:51
Abs Immat Gran (auto) 0.1 10^3/uL (0-0.05) H 04/24/25 17:46
Neutrophils % 79.5 % (42.2-75.2) H 04/24/25 17:46
Physical Exam
General: Well Developed
HEENT: Normocephalic
Respiratory: Non Labored Respirations
GI: Soft and Tender (Tender to palpation across the epigastrium, worse on the right compared to the left.)
Neuro: AO x 3
Data Reviewed
-
CT Scan: Image Personally Visualized and interpreted, Report Reviewed by me, Discussed with Physician and Discussed with Patient
Labs: Labs Reviewed by me, Discussed with Physician and Discussed with Patient
Total Time Spent with Patient (in minutes): 35
Assessment / Plan
-
This is a 64-year-old female with a history of hydrocephalus status post DIRECTOR MACHINE shunt, hysterectomy who presents with a 4-day history of severe abdominal pain found to have mild leukocytosis, elevated bilirubin, elevated transaminitis as well as a
lipase of over 4000 concerning for gallstone pancreatitis with possible superimposed cholecystitis. I suspect that she had/has a gallstone in her CBD that because of the dilation and pancreatitis, this may have passed. The subsequent inflammation
within the pancreatitis can cause inflammation of the surrounding structures including the gallbladder which might not be primarily inflamed though concurrent acute cholecystitis is also a possibility.
Recommend urgent MRI to better evaluate her common bile duct and to assess for residual stone disease. She has had MRIs in the past without issue. She does have a DIRECTOR MACHINE shunt that may need to be 'reset' after an MRI, unclear if we have personnel here
at [place] to perform this.
Agree with ultrasound to confirm cholelithiasis and potentially identify choledocholithiasis though due to the patient's body habitus this may be limited in terms of diagnostic value. Other options would include straight to ERCP or EUS, but will
defer to GI
For now would treat her pancreatitis.
Increased IV fluids to 200 cc/h LR. Titrate to urine output of 0.5 to 1 cc/kg/h. Do not over resuscitate as this can worsen outcomes.
Trend labs
N.p.o. for now, pending plan of care. Reasonable to trial clear liquid diet later if okay with GI.
Another consideration in the setting of abdominal sepsis in the presence of a DIRECTOR MACHINE shunt is at risk for infection of the catheter and a possible ascending infection to the brain which is something we will have to monitor.
I discussed the case with Dr. Astudillo as well as the GI MEGAN, reasonable to consider transfer downtown if we do not have available personnel for the care of this patient.
All questions answered, patient agreeable to plan of care above.
I spent 80 minutes in total for the care of this patient today including direct patient care and counseling, reviewing labs, imaging, coordination of care, as well as documentation.
[2025-04-25 11:42] LABS: Lipase 3056 U/L (23-300)
--- NOTE | 2025-04-25 12:34 | CM ---
Addendum entered by Pamela Romero 04/25/25 12:37:
CM consult for Advanced Directives
She accepted packet
Original Note:
CM met with pt bedside
She typically resides with her spouse in [place]
She comes to [place] 6 weeks on/6 weeks off to care for her father on hospice in his home
Home in [place] is a [place] and her sister is also there as well
Pt is independent with her ADLs, no DMEs
Pt has insurance/rx coverage through plan of [place]
PCP- Katrin Lewis/[place]
Rx- Teagan Hermosillo
Discharge Disposition- anticipate home no needs (watch for possible acute transfer)
[2025-04-25 15:55] VITALS: BP 116/69
[2025-04-25] MEDS: LOVENOX 40 MG SC (17:31)
[2025-04-25] MEDS: AMBIEN 10 MG PO (21:15)
[2025-04-25 23:02] VITALS: BP 92/70
[2025-04-26] MEDS: ZOSYN 50 IV ×4 (01:43→20:29)
[2025-04-26] MEDS: LR IV (01:43)
[2025-04-26] MEDS: LR 1000 IV ×3 (01:43→15:29)
[2025-04-26 07:00] VITALS: BP 107/60
[2025-04-26 07:01] LABS: Hematocrit 29.1 % (37.0-47.0); Hemoglobin 10.2 g/dL (12.0-16.0); Mean Corp Hgb Conc. 35.1 g/dL (33.0-37.0); Mean Corpuscular Volume 88.4 fL (81.0-99.0); Platelet Count 152 10^3/uL (130-400); Red Cell Dist. Width 13.2 % (11.5-14.5)
[2025-04-26 07:12] LABS: ALT (SGPT) 195 U/L (0-35); AST (SGOT) 84 U/L (14-36); Albumin 3.0 g/dl (3.5-5.0); Alkaline Phosphatase 148 U/L (38-126); Blood Urea Nitrogen 7 mg/dl (7-17); Calcium 8.6 mg/dl (8.4-10.2); Carbon Dioxide 24 mmol/L (22-30); Chloride 107 mmol/L (98-107); Estimated Creatinine Clearance 83 ml/min; Glucose 102 mg/dl (70-99); Lipase 1139 U/L (23-300); Potassium 3.6 mmol/L (3.5-5.1); Sodium 135 mmol/L (135-145); Total Protein 5.0 g/dl (6.3-8.2); eGFR > 60.00
--- NOTE | 2025-04-26 07:56 | PTCARENOTE ---
IVF rate adjusted to 100 ml/hr as ordered at this time. IS at bedside. pt asleep, will educate as able.
[2025-04-26] MEDS: ZOFRAN 4 MG IV ×2 (08:47→20:31)
[2025-04-26] MEDS: DILAUDID 1 MG IV ×3 (09:16→20:39)
--- NOTE | 2025-04-26 09:18 | W.PN.GI.CBS2 ---
Today's Communication / Plan
-
Clear liquid diet as tolerated
Decrease IV fluids rate
Incentive spirometry
Encouraged ambulation
Trend labs and I's and O's
Assessment / Plan
-
Pt is a 64yo with hx HTN, hyperlipidemia, insomnia, colon polyps, SLAB LIFTING SUPERVISOR shunt with revision for hydrocephalus, prior cervical spinal fusion, hysterectomy with onset of abdominal pain. She also report recent UTI with urgency and dysuria. On admission
noted with WBC 12,500, hbg 13,9, Na 133, K 3.4, creat 1.1, bili 4.7, AST 1063, ALT 619, alk phos 201 and lipase >4000. UA noted with + bili, + WBC, moderate bacteremia. She completed CT on admission with concern for acute cystitis, acute
cholecystitis and biliary dilation with possible cholangitis. She was also noted with hepatic steatosis, mild ascites, chronic pancreatitis, SM, SLAB LIFTING SUPERVISOR shunt and DDD. No hx pancreatitis in past. No family hx pancreatitis or ETOH use.
-abdominal pain with increased LFT's and lipase concern for possible cholangitis vs Gallstone pancreatitis
-leukocytosis/low grade fever
-Ct concern for cystitis
-additional CT finding hepatic steatosis, mild ascites, chronic pancreatitis, SM
-hyponatremia
-hypokalemia
-mild VANCE on admission
other med problems:
HTN, hyperlipidemia, insomnia, SLAB LIFTING SUPERVISOR shunt with revision, prior cervical spinal fusion, hysterectomy
PLAN:
etiology of symptoms related to cholecystis, gallstone panc, with possible cystitis vs other
reviewed with MRI unable to completed with SLAB LIFTING SUPERVISOR shunt, No EUS availability over next week at
US with no obvious CBD stone or ductal dilatation
cont abx
Continue clear liquids as tolerated
Will decrease IV fluids rate to 100 cc an hour
Added PPI
LFTs markedly improved so most likely she passed a stone and now pain may be related to gallstone pancreatitis and probable cholecystitis
discussed with Dr. Soares they would like to hold off on cholecystectomy till her pancreatitis symptoms have improved
Encouraged ambulation and incentive spirometry
Discussed with Dr. Stovre also he is going to discuss with neurosurgery if their presence is needed at the time of cholecystectomy
Subjective
Subjective
Date of Service: April 26, 2025
Still with epigastric pain but improved from yesterday. She tolerated clear liquids yesterday. LFTs have markedly improved and lipase is also trending down,. afebrile since yesterday
Objective
Data Reviewed
Laboratory Data:
Laboratory Results
04/26/25 06:29
04/26/25 06:29
Laboratory Results
PT 18.1 Sec (11.4-14.6) H 04/25/25 05:51
INR 1.48 04/25/25 05:51
Magnesium 1.8 mg/dl (1.6-2.3) 04/25/25 05:51
Total Bilirubin 1.0 mg/dl (0.2-1.3) D 04/26/25 06:29
AST 84 U/L (14-36) H 04/26/25 06:29
ALT 195 U/L (0-35) H 04/26/25 06:29
Alkaline Phosphatase 148 U/L (38-126) H 04/26/25 06:29
Lipase 1139 U/L (23-300) H* 04/26/25 06:29
Vital Signs and I&O:
Vital Signs
Temp Pulse Resp BP Pulse Ox
98.0 F 89 16 107/60 97
04/26/25 07:00 04/26/25 07:00 04/26/25 07:00 04/26/25 07:00 04/26/25 07:00
I&O
04/25/25 04/26/25 04/27/25
06:59 06:59 06:59
Intake Total 850 / 850 2039
Balance 850 / 850 2039
Physical Exam
Physical Exam
Cardiology: Normal Sinus Rhythm
Pulmonary: Clear
GI: Soft, Non Distended, Tender (Epigastric and mild right upper quadrant tenderness) and Normal Bowel Sounds
--- NOTE | 2025-04-26 09:32 | W.PN.GS2 ---
Today's Communication / Plan
-
serial abd exams
pancreatitis tx per GI
Assessment / Plan
-
This is a 64-year-old female with a history of hydrocephalus status post PLANISHING PRESS OPERATOR shunt, hysterectomy who presents with a 4-day history of severe abdominal pain found to have mild leukocytosis, elevated bilirubin, elevated transaminitis as well as a
lipase of over 4000 concerning for gallstone pancreatitis with possible superimposed cholecystitis. I suspect that she had/has a gallstone in her CBD that because of the dilation and pancreatitis, this may have passed. The subsequent inflammation
within the pancreatitis can cause inflammation of the surrounding structures including the gallbladder which might not be primarily inflamed though concurrent acute cholecystitis is also a possibility.
MRI deferred
LFTs trending down
Remains ttp to epigastrium
For now would cont to treat her pancreatitis per GI recs.
Trend labs
Another consideration in the setting of abdominal sepsis in the presence of a PLANISHING PRESS OPERATOR shunt is at risk for infection of the catheter and a possible ascending infection to the brain which is something we will have to monitor.
Serial abd exams
GS will follow
Subjective Data
-
Date of Service: April 26, 2025
C/o abd pain, denies n/v, quinn cld
Objective Data
-
Intake and Output
04/25/25 04/26/25 04/27/25
06:59 06:59 06:59
Intake Total 850 / 850 2039
Balance 850 / 850 2039
Intake:
Oral fluids 240 / 240
IV fluids (Total) 800 / 800 1700 / 1700
IV piggybacks 50 / 50 100 / 100
Other:
Number of approximated LARGE 1
amounts of urine
Vital Signs
Temp Pulse Resp BP Pulse Ox
98.0 F 89 16 107/60 97
04/26/25 07:00 04/26/25 07:00 04/26/25 07:00 04/26/25 07:00 04/26/25 07:00
Lab Results
04/26/25 06:29
04/26/25 06:29
Calcium 8.6 mg/dl (8.4-10.2) 04/26/25 06:29
Magnesium 1.8 mg/dl (1.6-2.3) 04/25/25 05:51
Total Bilirubin 1.0 mg/dl (0.2-1.3) D 04/26/25 06:29
Direct Bilirubin 2.0 mg/dl (0.0-0.4) H 04/25/25 05:51
AST 84 U/L (14-36) H 04/26/25 06:29
ALT 195 U/L (0-35) H 04/26/25 06:29
Alkaline Phosphatase 148 U/L (38-126) H 04/26/25 06:29
Total Protein 5.0 g/dl (6.3-8.2) L 04/26/25 06:29
Albumin 3.0 g/dl (3.5-5.0) L 04/26/25 06:29
Physical Exam
-
Gen: NAD
Abd: soft, mod-sev ttp to epigastrium, mod LUQ ttp
Patient has a bethea catheter: No
Patient has a central line: No
--- NOTE | 2025-04-26 10:59 | W.PN.HOSP.TC ---
Today's Communication/Plan
-
Start clear liquid diet
Pain control.
Monitor liver enzymes
Assessment / Plan
Assessment / Plan
Impression:
64-year-old with past medical history of FIVE PIECE EXPANSION MAKER HAND shunt, hypertension, hyperlipidemia who presents to the emergency department with abdominal pain as well as urinary symptoms and found to have acute cystitis, possible cholangitis with elevated LFTs and
bilirubin as well as acute cystitis on the CT scan.
Ultrasound abdomen done showed :gallbladder sludge. Borderline thickened gallbladder wall. No findings to suggest pericholecystic fluid or biliary tract dilatation. Negative sonographic Allen's sign.
No findings to confirm choledocholithiasis.
Findings suggesting diffuse fatty liver.
Pain slightly improved, started on clear liquid diet
Assessment/plan:
Acute Cholecystitis/acute cholangitis
High-grade cholecystitis confirmed on imaging.
On arrival: afebrile, BP 120/64, HR 97, SpO? 97% RA.
Initial labs: WBC 12.5, Hgb 13.9, Plt 230. Electrolytes: Na 133, K 3.4, Cl 96, HCO? 26. BUN/Cr normal. Glucose 147.
LFTs: Total bilirubin 4.7, AST 1000, ALT 619, Alk Phos 200. Lipase >4000
CT abdomen/pelvis: acute cholecystitis with mild pericholecystic fluid and inflammation; mild biliary dilation and bile duct wall enhancement (possible cholangitis); mild diffuse hepatic steatosis; acute cystitis with mild bladder wall thickening.
Hemodynamically stable, nontoxic-appearing. Concern for biliary obstruction and possible cholangitis given elevated bilirubin and transaminases.
Allergy: remote penicillin allergy (>30 years ago).
History: FIVE PIECE EXPANSION MAKER HAND shunt, multiple MRIs tolerated.
Plan:
Admitted to [facility]
NPO for now
IV Zosyn
Blood cultures
Pain control and antiemetics
IV fluids.
MRCP was not able to be done secondary to FIVE PIECE EXPANSION MAKER HAND shunt, ultrasound abdomen pending
GI consulted/ Surgery consulted, possible transfer to tertiary center.
04/26.
Ultrasound abdomen done showed :gallbladder sludge. Borderline thickened gallbladder wall. No findings to suggest pericholecystic fluid or biliary tract dilatation. Negative sonographic Allen's sign.
No findings to confirm choledocholithiasis.
Findings suggesting diffuse fatty liver.
Pain slightly improved, started on clear liquid diet
Acute pancreatitis.
Secondary to above.
Elevated lipase.
No CT finding of acute pancreatitis.
Continue n.p.o., IV fluid, IV antibiotics
04/26
CLD
Hyponatremia.
Improved
Hypokalemia.
Repleted
Acute Cystitis
cystitis noted on imaging; no stones, no urinary obstruction.
Plan:
Urine culture
Continue IV Zosyn as above
CODE STATUS: Full code
DVT prophylaxis: Lovenox
Diet: NPO
Disposition: CLD
Total time spent on today's encounter was 55 minutes which included time spent in counseling the patient/family regarding diagnosis and treatment plan as listed above, goals of care, and symptom management. Case was discussed with nursing staff,
specialists, and care coordinators/case management. All labs and imaging personally reviewed by me. Remainder the time spent in detailed review of previous records, lab data, imaging, and other medical provider documentation.
Part of this note was created using voice recognition system. Occasional wrong word or �sound alike� substitutions may have inadvertently occurred due to the inherent limitations of voice recognition software. If noted kindly bring it to my
attention for correction.
Anticipated Discharge: > 48 hours
Subjective/Interval History
-
Date of Service: April 26, 2025
Patient seen and examined at bedside, still with significant abdominal pain but slightly improved compared to yesterday, start clear liquid diet.
Objective Data
-
Labs:
Laboratory Results
04/26/25
06:29
WBC 6.4
Hgb 10.2 L
Hct 29.1 L
Plt Count 152 D
Sodium 135
Potassium 3.6
Chloride 107
Carbon Dioxide 24
BUN 7
Creatinine 0.7
Glucose 102 H
Calcium 8.6
Total Bilirubin 1.0 D
AST 84 H
ALT 195 H
Alkaline Phosphatase 148 H
Vital Signs:
Vital Signs
Temp Pulse Resp BP Pulse Ox
98.0 F 89 16 107/60 97
04/26/25 07:00 04/26/25 07:00 04/26/25 07:00 04/26/25 07:00 04/26/25 07:00
I&O
04/25/25 04/26/25 04/27/25
06:59 06:59 06:59
Intake Total 850 / 850 2039 / 0 717 / 717
Balance 850 / 850 0 / 0 717 / 717
Physical Exam
-
General: Well Developed, Well Nourished, No Apparent Distress and Comfortable
HEENT: Normocephalic, Atraumatic, Moist Mucous Membranes, No Ptosis, PERRLA and Nose Appears Normal
Respiratory: Clear to Auscultation and Non Labored Respirations
Cardiac: Regular Rhythm and S1/S2
Breast: Deferred by me
GI: Soft, Nondistended, Normal Bowel Sounds and Tender (Right upper quadrant)
Genito-urinary: No Costovertebral Tender
Musculoskeletal: No Clubbing, No Cyanosis and No Edema
Skin: Warm
Neuro: Awake, Alert, Oriented, AO x 3 and No Motor Deficits
Psych: Calm
[2025-04-26 11:32] VITALS: BMI 30.8
[2025-04-26] MEDS: NSS (PRESERVATIVE FREE) 10 ML IV (11:52)
[2025-04-26] MEDS: PROTONIX IV 40 MG IV (11:52)
--- NOTE | 2025-04-26 15:07 | CM ---
Home with stable, no needs, per spouse insurance to change in May,May 04.
Plan; Home when stable.
[2025-04-26 15:25] VITALS: BP 107/66
[2025-04-26] MEDS: LOVENOX 40 MG SC (18:33)
[2025-04-26] MEDS: AMBIEN 10 MG PO (21:56)
[2025-04-26 23:12] VITALS: BP 98/66
[2025-04-27] MEDS: ZOSYN 50 IV ×4 (01:45→20:11)
[2025-04-27 06:22] LABS: Hematocrit 28.7 % (37.0-47.0); Hemoglobin 10.0 g/dL (12.0-16.0); Mean Corp Hgb Conc. 34.8 g/dL (33.0-37.0); Mean Corpuscular Volume 88.9 fL (81.0-99.0); Platelet Count 146 10^3/uL (130-400); Red Cell Dist. Width 13.1 % (11.5-14.5)
[2025-04-27] MEDS: ZOFRAN 4 MG IV ×2 (06:32→21:54)
[2025-04-27] MEDS: DILAUDID 1 MG IV (06:32)
[2025-04-27 06:49] LABS: ALT (SGPT) 142 U/L (0-35); AST (SGOT) 36 U/L (14-36); Albumin 3.0 g/dl (3.5-5.0); Alkaline Phosphatase 140 U/L (38-126); Blood Urea Nitrogen 3 mg/dl (7-17); Calcium 8.7 mg/dl (8.4-10.2); Carbon Dioxide 29 mmol/L (22-30); Chloride 106 mmol/L (98-107); Estimated Creatinine Clearance 83 ml/min; Glucose 104 mg/dl (70-99); Lipase 514 U/L (23-300); Potassium 3.4 mmol/L (3.5-5.1); Sodium 138 mmol/L (135-145); Total Protein 5.1 g/dl (6.3-8.2); eGFR > 60.00
[2025-04-27 08:05] VITALS: BP 100/65
[2025-04-27] MEDS: PROTONIX IV 40 MG IV (09:13)
[2025-04-27] MEDS: NSS (PRESERVATIVE FREE) 10 ML IV (09:13)
[2025-04-27] MEDS: KCL 20 MEQ PO (09:24)
[2025-04-27] MEDS: COMPAZINE 10 MG IV (11:12)
--- NOTE | 2025-04-27 11:21 | W.PN.GI.CBS2 ---
Today's Communication / Plan
-
Full liquid diet now and NPO at OK
Appreciate surgical recs for possible CYY tomorrow
AXR to asess fecal burden
Will follow with you
Assessment / Plan
-
Pt is a 64yo with hx HTN, hyperlipidemia, insomnia, colon polyps, BENEFITS DIRECTOR shunt with revision for hydrocephalus, prior cervical spinal fusion, hysterectomy with onset of abdominal pain. She also report recent UTI with urgency and dysuria. On admission
noted with WBC 12,500, hbg 13,9, Na 133, K 3.4, creat 1.1, bili 4.7, AST 1063, ALT 619, alk phos 201 and lipase >4000. UA noted with + bili, + WBC, moderate bacteremia. She completed CT on admission with concern for acute cystitis, acute
cholecystitis and biliary dilation with possible cholangitis. She was also noted with hepatic steatosis, mild ascites, chronic pancreatitis, SM, BENEFITS DIRECTOR shunt and DDD. No hx pancreatitis in past. No family hx pancreatitis or ETOH use.
Impression
- Abdominal pain
suspected gallstone pancreatitis and cholecystitis
-leukocytosis/low grade fever
-BENEFITS DIRECTOR shunt
-Ct concern for cystitis
-additional CT finding hepatic steatosis, mild ascites, chronic pancreatitis, SM
-hyponatremia
-hypokalemia
-mild VANCE on admission
other med problems:
HTN, hyperlipidemia, insomnia, BENEFITS DIRECTOR shunt with revision, prior cervical spinal fusion, hysterectomy
Plan
- Unable to get MRI given BENEFITS DIRECTOR shunt. LFTs significantly improved
- Adv to FLD
- NPO at OK for possible CYY tomorrow per my d/w Dr Soares
- AXR to assess stool burden
- C/w PPI
- C/w abx
Will follow with you
Subjective
Subjective
Date of Service: April 27, 2025
Abd pain now 4 out of 10. mild nausea but eating 100% of CLD. Reports new diarrhea past hour but prior no BMs. C/o bloating
Objective
Data Reviewed
Laboratory Data:
Laboratory Results
04/27/25 05:54
04/27/25 05:54
Laboratory Results
PT 18.1 Sec (11.4-14.6) H 04/25/25 05:51
INR 1.48 04/25/25 05:51
Magnesium 1.8 mg/dl (1.6-2.3) 04/25/25 05:51
Total Bilirubin 0.6 mg/dl (0.2-1.3) 04/27/25 05:54
AST 36 U/L (14-36) 04/27/25 05:54
ALT 142 U/L (0-35) H 04/27/25 05:54
Alkaline Phosphatase 140 U/L (38-126) H 04/27/25 05:54
Lipase 514 U/L (23-300) H 04/27/25 05:54
Vital Signs and I&O:
Vital Signs
Temp Pulse Resp BP Pulse Ox
98.2 F 77 16 100/65 97
04/27/25 08:05 04/27/25 08:05 04/27/25 08:05 04/27/25 08:05 04/27/25 08:05
I&O
04/26/25 04/27/25 04/28/25
06:59 06:59 06:59
Intake Total 2039 2731 / 2731
Balance 2039 2731 / 2731
Physical Exam
Physical Exam
GEN: No acute distress, conversant, pleasant
HEENT: anicteric, extraocular movements intact, clear oropharynx without exudates
GI: soft, obese mildly distended mild epigastric tender to palpation, normal active bowel sounds, no hepatosplenomegaly
EXT: warm, well perfused, no edema bilaterally
NEURO: AAOx3, non-focal
--- NOTE | 2025-04-27 12:09 | W.PN.HOSP.TC ---
Today's Communication/Plan
-
N.p.o. after midnight.
Possible lap rebecca in am
Assessment / Plan
Assessment / Plan
Impression:
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
bilirubin as well as acute cystitis on the CT scan.
Ultrasound abdomen done showed :gallbladder sludge. Borderline thickened gallbladder wall. No findings to suggest pericholecystic fluid or biliary tract dilatation. Negative sonographic Allen's sign.
No findings to confirm choledocholithiasis.
Findings suggesting diffuse fatty liver.
Pain slightly improved, started on clear liquid diet
Plan for lap rebecca on Thursday
Assessment/plan:
Acute Cholecystitis/acute cholangitis
High-grade cholecystitis confirmed on imaging.
On arrival: afebrile, BP 120/64, HR 97, SpO? 97% RA.
Initial labs: WBC 12.5, Hgb 13.9, Plt 230. Electrolytes: Na 133, K 3.4, Cl 96, HCO? 26. BUN/Cr normal. Glucose 147.
LFTs: Total bilirubin 4.7, AST 1000, ALT 619, Alk Phos 200. Lipase >4000
CT abdomen/pelvis: acute cholecystitis with mild pericholecystic fluid and inflammation; mild biliary dilation and bile duct wall enhancement (possible cholangitis); mild diffuse hepatic steatosis; acute cystitis with mild bladder wall thickening.
Hemodynamically stable, nontoxic-appearing. Concern for biliary obstruction and possible cholangitis given elevated bilirubin and transaminases.
Allergy: remote penicillin allergy (>30 years ago).
History: INDUSTRIAL SAFETY AND HEALTH MANAGER shunt, multiple MRIs tolerated.
Plan:
Admitted to [facility]
NPO for now
IV Zosyn
Blood cultures
Pain control and antiemetics
IV fluids.
MRCP was not able to be done secondary to INDUSTRIAL SAFETY AND HEALTH MANAGER shunt, ultrasound abdomen pending
GI consulted/ Surgery consulted, possible transfer to tertiary center.
04/26.
Ultrasound abdomen done showed :gallbladder sludge. Borderline thickened gallbladder wall. No findings to suggest pericholecystic fluid or biliary tract dilatation. Negative sonographic Allen's sign.
No findings to confirm choledocholithiasis.
Findings suggesting diffuse fatty liver.
Pain slightly improved, started on clear liquid diet
04/27
Full liquid diet, lap rebecca in a.m.
Acute pancreatitis.
Secondary to above.
Elevated lipase.
No CT finding of acute pancreatitis.
Continue n.p.o., IV fluid, IV antibiotics
04/26
CLD
04/27
Full liquid diet, lap rebecca in a.m.
Hyponatremia.
Improved
Hypokalemia.
Repleted
Acute Cystitis
cystitis noted on imaging; no stones, no urinary obstruction.
Plan:
Urine culture shows no growth.
Continue IV Zosyn as above
Anemia.
Possible dilutional.
Continue to monitor
CODE STATUS: Full code
DVT prophylaxis: Lovenox
Diet: Liquid diet
Disposition: N.p.o. after midnight.
Possible lap rebecca in am
Total time spent on today's encounter was 55 minutes which included time spent in counseling the patient/family regarding diagnosis and treatment plan as listed above, goals of care, and symptom management. Case was discussed with nursing staff,
specialists, and care coordinators/case management. All labs and imaging personally reviewed by me. Remainder the time spent in detailed review of previous records, lab data, imaging, and other medical provider documentation.
Part of this note was created using voice recognition system. Occasional wrong word or �sound alike� substitutions may have inadvertently occurred due to the inherent limitations of voice recognition software. If noted kindly bring it to my
attention for correction.
Anticipated Discharge: > 48 hours
Subjective/Interval History
-
Date of Service: April 27, 2025
Patient seen and examined at bedside, abdominal pain improved, n.p.o. after midnight for possible lap rebecca tomorrow.
Objective Data
-
Labs:
Laboratory Results
04/27/25
05:54
WBC 4.1 L
Hgb 10.0 L
Hct 28.7 L
Plt Count 146
Sodium 138
Potassium 3.4 L
Chloride 106
Carbon Dioxide 29
BUN 3 L
Creatinine 0.7
Glucose 104 H
Calcium 8.7
Total Bilirubin 0.6
AST 36
ALT 142 H
Alkaline Phosphatase 140 H
Vital Signs:
Vital Signs
Temp Pulse Resp BP Pulse Ox
98.2 F 77 16 100/65 97
04/27/25 08:05 04/27/25 08:05 04/27/25 08:05 04/27/25 08:05 04/27/25 08:05
I&O
04/26/25 04/27/25 04/28/25
06:59 06:59 06:59
Intake Total 2039 2731 / 2731
Balance 2039 2731 / 2731
Physical Exam
-
General: Well Developed, Well Nourished, No Apparent Distress and Comfortable
HEENT: Normocephalic, Atraumatic, Moist Mucous Membranes, No Ptosis, PERRLA and Nose Appears Normal
Respiratory: Clear to Auscultation and Non Labored Respirations
Cardiac: Regular Rhythm and S1/S2
Breast: Deferred by me
GI: Soft, Nondistended, Normal Bowel Sounds and Tender (Right upper quadrant)
Genito-urinary: No Costovertebral Tender
Musculoskeletal: No Clubbing, No Cyanosis and No Edema
Skin: Warm
Neuro: Awake, Alert, Oriented, AO x 3 and No Motor Deficits
Psych: Calm
--- NOTE | 2025-04-27 12:09 | W.PN.GS2 ---
Today's Communication / Plan
-
Serial abd exams
Pt prefers to proceed with CCY here when timing appropriate
Assessment / Plan
-
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
lipase of over 4000 concerning for gallstone pancreatitis with possible superimposed cholecystitis. I suspect that she had/has a gallstone in her CBD that because of the dilation and pancreatitis, this may have passed. The subsequent inflammation
within the pancreatitis can cause inflammation of the surrounding structures including the gallbladder which might not be primarily inflamed though concurrent acute cholecystitis is also a possibility.
MRI deferred
LFTs trending down
Remains ttp to epigastrium
For now would cont to treat her pancreatitis per GI recs.
Trend labs
Serial abd exams
GS will follow
Subjective Data
-
Date of Service: April 27, 2025
AFVSS, c/o abd pain and nausea, pain is better but not resolved, still requiring dilaudid
Objective Data
-
Intake and Output
04/26/25 04/27/25 04/28/25
06:59 06:59 06:59
Intake Total 2039 2731 / 2731
Balance 2039 2731 / 2731
Intake:
Oral fluids 240 / 240 1910
IV fluids (Total) 1700 / 1700 720 / 720
IV piggybacks 100 / 100 100 / 100
Other:
Number of approximated MODERATE 2
amounts of urine
Number of approximated LARGE 1
amounts of urine
Vital Signs
Temp Pulse Resp BP Pulse Ox
98.2 F 77 16 100/65 97
04/27/25 08:05 04/27/25 08:05 04/27/25 08:05 04/27/25 08:05 04/27/25 08:05
Lab Results
04/27/25 05:54
04/27/25 05:54
Calcium 8.7 mg/dl (8.4-10.2) 04/27/25 05:54
Magnesium 1.8 mg/dl (1.6-2.3) 04/25/25 05:51
Total Bilirubin 0.6 mg/dl (0.2-1.3) 04/27/25 05:54
Direct Bilirubin 2.0 mg/dl (0.0-0.4) H 04/25/25 05:51
AST 36 U/L (14-36) 04/27/25 05:54
ALT 142 U/L (0-35) H 04/27/25 05:54
Alkaline Phosphatase 140 U/L (38-126) H 04/27/25 05:54
Total Protein 5.1 g/dl (6.3-8.2) L 04/27/25 05:54
Albumin 3.0 g/dl (3.5-5.0) L 04/27/25 05:54
Physical Exam
-
Gen: NAD
Abd: soft, ttp to epigastrium and RUQ, obese
Patient has a bethea catheter: No
Patient has a central line: No
[2025-04-27] MEDS: DILAUDID 0.5 MG IV (13:04)
[2025-04-27 16:05] VITALS: BP 108/79
[2025-04-27] MEDS: LOVENOX 40 MG SC (17:20)
[2025-04-27] MEDS: ROXICODONE 5 MG PO (17:22)
[2025-04-27] MEDS: NEURONTIN 400 MG PO (21:45)
[2025-04-27] MEDS: AMBIEN 10 MG PO (21:45)
[2025-04-27] MEDS: CYMBALTA DELAYED RELEASE 60 MG PO (21:45)
[2025-04-27 23:04] VITALS: BP 135/68
[2025-04-28] VITALS (13 sets, daily range): BP systolic 105–123; BP diastolic 51–82
[2025-04-28] MEDS: ZOSYN 50 IV ×4 (02:01→19:57)
[2025-04-28 07:54] LABS: ALT (SGPT) 113 U/L (0-35); AST (SGOT) 26 U/L (14-36); Albumin 3.8 g/dl (3.5-5.0); Alkaline Phosphatase 130 U/L (38-126); Blood Urea Nitrogen 3 mg/dl (7-17); Calcium 9.5 mg/dl (8.4-10.2); Carbon Dioxide 28 mmol/L (22-30); Chloride 106 mmol/L (98-107); Estimated Creatinine Clearance 83 ml/min; Glucose 106 mg/dl (70-99); Lipase 581 U/L (23-300); Potassium 3.7 mmol/L (3.5-5.1); Sodium 141 mmol/L (135-145); Total Protein 6.1 g/dl (6.3-8.2); eGFR > 60.00
[2025-04-28 08:17] LABS: Hematocrit 31.1 % (37.0-47.0); Hemoglobin 10.9 g/dL (12.0-16.0); Mean Corp Hgb Conc. 35.0 g/dL (33.0-37.0); Mean Corpuscular Volume 87.4 fL (81.0-99.0); Platelet Count 177 10^3/uL (130-400); Red Cell Dist. Width 12.9 % (11.5-14.5)
[2025-04-28] MEDS: ATIVAN 1 MG IV (08:45)
[2025-04-28] MEDS: PROTONIX IV 40 MG IV (08:49)
[2025-04-28] MEDS: NSS (PRESERVATIVE FREE) 10 ML IV (08:49)
[2025-04-28] MEDS: NEURONTIN 400 MG PO ×3 (08:49→21:35)
[2025-04-28] MEDS: FLUSH (NSS) 4 FLUSH IV (08:50)
[2025-04-28] MEDS: CYMBALTA DELAYED RELEASE 60 MG PO ×2 (08:50→19:56)
--- NOTE | 2025-04-28 12:52 | W.PN.GS2 ---
Today's Communication / Plan
-
OR today
Assessment / Plan
-
64 yo female presenting with likely gallstone mediated pancreatitis with possible superimposed cholecystics
Bilirubin elevated on presentation but now normalized, MRI deferred
LFT's trending down and pain resolved
Pain/nausea resolved
Plan:
Appreciate GI following
NPO for OR today for lap cholecystectomy with IOC
C/W IV abx pending OR findings
Subjective Data
-
Date of Service: April 28, 2025
Pt seen and examined at bedside with Dr Soares. Prior abdominal pain has resolved. Denies n/v.
Objective Data
-
Intake and Output
04/27/25 04/28/25 04/29/25
06:59 06:59 06:59
Intake Total 2731 / 2731 630 / 630 50 / 50
Balance 2731 / 2731 630 / 630 50 / 50
Intake:
Oral fluids 1911 / 1910 480 / 480
IV fluids (Total) 720 / 720 50 / 50
IV piggybacks 100 / 100 100 / 100 50 / 50
Other:
Number of approximated MODERATE 2 1
amounts of urine
Number of approximated LARGE 1
amounts of urine
Vital Signs
Temp Pulse Resp BP Pulse Ox
97.9 F 74 18 123/82 96
04/28/25 07:25 04/28/25 07:25 04/28/25 07:25 04/28/25 07:25 04/28/25 08:46
Lab Results
04/28/25 07:08
04/28/25 07:08
Calcium 9.5 mg/dl (8.4-10.2) 04/28/25 07:08
Magnesium 1.8 mg/dl (1.6-2.3) 04/25/25 05:51
Total Bilirubin 0.7 mg/dl (0.2-1.3) 04/28/25 07:08
Direct Bilirubin 2.0 mg/dl (0.0-0.4) H 04/25/25 05:51
AST 26 U/L (14-36) 04/28/25 07:08
ALT 113 U/L (0-35) H 04/28/25 07:08
Alkaline Phosphatase 130 U/L (38-126) H 04/28/25 07:08
Total Protein 6.1 g/dl (6.3-8.2) L 04/28/25 07:08
Albumin 3.8 g/dl (3.5-5.0) 04/28/25 07:08
Physical Exam
-
NAD
ABD soft, nt, nd
--- NOTE | 2025-04-28 12:58 | W.PN.HOSP.TC ---
Today's Communication/Plan
-
OR today
Assessment / Plan
Assessment / Plan
Impression:
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
bilirubin as well as acute cystitis on the CT scan.
Ultrasound abdomen done showed :gallbladder sludge. Borderline thickened gallbladder wall. No findings to suggest pericholecystic fluid or biliary tract dilatation. Negative sonographic Allen's sign.
No findings to confirm choledocholithiasis.
Findings suggesting diffuse fatty liver.
Pain slightly improved, started on clear liquid diet
Plan for lap rebecca on Saturday 04/28
Assessment/plan:
Acute Cholecystitis/acute cholangitis
High-grade cholecystitis confirmed on imaging.
On arrival: afebrile, BP 120/64, HR 97, SpO? 97% RA.
Initial labs: WBC 12.5, Hgb 13.9, Plt 230. Electrolytes: Na 133, K 3.4, Cl 96, HCO? 26. BUN/Cr normal. Glucose 147.
LFTs: Total bilirubin 4.7, AST 1000, ALT 619, Alk Phos 200. Lipase >4000
CT abdomen/pelvis: acute cholecystitis with mild pericholecystic fluid and inflammation; mild biliary dilation and bile duct wall enhancement (possible cholangitis); mild diffuse hepatic steatosis; acute cystitis with mild bladder wall thickening.
Hemodynamically stable, nontoxic-appearing. Concern for biliary obstruction and possible cholangitis given elevated bilirubin and transaminases.
Allergy: remote penicillin allergy (>30 years ago).
History: JOB SPECIFICATION WRITER shunt, multiple MRIs tolerated.
Plan:
Admitted to [facility]
NPO for now
IV Zosyn
Blood cultures
Pain control and antiemetics
IV fluids.
MRCP was not able to be done secondary to JOB SPECIFICATION WRITER shunt, ultrasound abdomen pending
GI consulted/ Surgery consulted, possible transfer to tertiary center.
04/26.
Ultrasound abdomen done showed :gallbladder sludge. Borderline thickened gallbladder wall. No findings to suggest pericholecystic fluid or biliary tract dilatation. Negative sonographic Allen's sign.
No findings to confirm choledocholithiasis.
Findings suggesting diffuse fatty liver.
Pain slightly improved, started on clear liquid diet
04/27
Full liquid diet, lap rebecca in a.m.
04/28
Lap rebecca today
Acute pancreatitis.
Secondary to above.
Elevated lipase.
No CT finding of acute pancreatitis.
Continue n.p.o., IV fluid, IV antibiotics
04/26
CLD
04/27
Full liquid diet, lap rebecca in a.m.
Hyponatremia.
Improved
Hypokalemia.
Repleted
Acute Cystitis
cystitis noted on imaging; no stones, no urinary obstruction.
Plan:
Urine culture shows no growth.
Continue IV Zosyn as above
Anemia.
Possible dilutional.
Continue to monitor
CODE STATUS: Full code
DVT prophylaxis: Lovenox
Diet: NPO
Disposition: OR today.
Total time spent on today's encounter was 55 minutes which included time spent in counseling the patient/family regarding diagnosis and treatment plan as listed above, goals of care, and symptom management. Case was discussed with nursing staff,
specialists, and care coordinators/case management. All labs and imaging personally reviewed by me. Remainder the time spent in detailed review of previous records, lab data, imaging, and other medical provider documentation.
Part of this note was created using voice recognition system. Occasional wrong word or �sound alike� substitutions may have inadvertently occurred due to the inherent limitations of voice recognition software. If noted kindly bring it to my
attention for correction.
Anticipated Discharge: 24 - 48 hours
Subjective/Interval History
-
Date of Service: April 28, 2025
Patient seen and examined at bedside, denies any chest pain or shortness of breath, improved abdominal pain, no nausea, no vomiting, no diarrhea or constipation.
Objective Data
-
Labs:
Laboratory Results
04/28/25
07:08
WBC 5.2
Hgb 10.9 L
Hct 31.1 L
Plt Count 177 D
Sodium 141
Potassium 3.7
Chloride 106
Carbon Dioxide 28
BUN 3 L
Creatinine 0.7
Glucose 106 H
Calcium 9.5
Total Bilirubin 0.7
AST 26
ALT 113 H
Alkaline Phosphatase 130 H
Vital Signs:
Vital Signs
Temp Pulse Resp BP Pulse Ox
97.9 F 74 18 123/82 96
04/28/25 07:25 04/28/25 07:25 04/28/25 07:25 04/28/25 07:25 04/28/25 08:46
I&O
04/27/25 04/28/25 04/29/25
06:59 06:59 06:59
Intake Total 2731 / 2731 630 / 630 50 / 50
Balance 2731 / 2731 630 / 630 50 / 50
Physical Exam
-
General: Well Developed, Well Nourished, No Apparent Distress and Comfortable
HEENT: Normocephalic, Atraumatic, Moist Mucous Membranes, No Ptosis, PERRLA and Nose Appears Normal
Respiratory: Clear to Auscultation and Non Labored Respirations
Cardiac: Regular Rhythm and S1/S2
Breast: Deferred by me
GI: Soft, Nondistended, Normal Bowel Sounds and Tender (Right upper quadrant)
Genito-urinary: No Costovertebral Tender
Musculoskeletal: No Clubbing, No Cyanosis and No Edema
Skin: Warm
Neuro: Awake, Alert, Oriented, AO x 3 and No Motor Deficits
Psych: Calm
--- NOTE | 2025-04-28 13:29 | CM ---
OR today, home no needs
Plan; Home when stable.
--- NOTE | 2025-04-28 13:38 | W.IMMPOSTOP ---
Surgical Immed Post Op Note
-
Primary Surgeon: Rodger
Pre-op Diagnosis: Biliary pancreatitis
Post-op Diagnosis: Chronic cholecystitis
Procedure Performed: Laparoscopic cholecystectomy with cholangiogram
Anesthesia Type: GETA
Specimen / Cultures: Gallbladder
Estimated Blood Loss: 15cc
Complications: None immediate
Operative Findings: Gallbladder wall thickening with fibrosis, dense adhesions of pericolonic fat taken down bluntly, cholangiogram with good flow into duodenum, opacification of biliary tree and pancreatic duct without filling defects
[2025-04-28] MEDS: DILAUDID 0.5 MG IV ×3 (14:03→22:20)
--- NOTE | 2025-04-28 15:46 | PTCARENOTE ---
Patient returned to her room from pacu post laparoscopic cholecystectomy.She is drowsy but arousable.She rates her pain at a 5 out of 10.All 5 lap sites are clean without drainage.Vital signs are stable.The patient is in her bed with the call ribera
in place.
[2025-04-28] MEDS: LOVENOX 40 MG SC (17:38)
[2025-04-28] MEDS: AMBIEN 10 MG PO (21:35)
[2025-04-29] MEDS: ZOSYN 50 IV ×2 (01:55→07:54)
[2025-04-29 03:03] VITALS: BP 82/41
[2025-04-29] MEDS: NSS 500 IV (03:39)
--- NOTE | 2025-04-29 03:45 | PTCARENOTE ---
Pt blood pressure 82/41, pt asymptomatic, AOx3. Provider notified. Per order, 500ml IVF NS bolus administered. Care ongoing.
[2025-04-29 06:22] VITALS: BP 103/69
[2025-04-29 06:57] LABS: Hematocrit 31.7 % (37.0-47.0); Hemoglobin 10.9 g/dL (12.0-16.0); Mean Corp Hgb Conc. 34.4 g/dL (33.0-37.0); Mean Corpuscular Volume 90.3 fL (81.0-99.0); Platelet Count 251 10^3/uL (130-400); Red Cell Dist. Width 13.3 % (11.5-14.5)
[2025-04-29 07:09] LABS: ALT (SGPT) 105 U/L (0-35); AST (SGOT) 63 U/L (14-36); Albumin 3.6 g/dl (3.5-5.0); Alkaline Phosphatase 127 U/L (38-126); Blood Urea Nitrogen 5 mg/dl (7-17); Calcium 8.8 mg/dl (8.4-10.2); Carbon Dioxide 29 mmol/L (22-30); Chloride 102 mmol/L (98-107); Estimated Creatinine Clearance 72 ml/min; Glucose 112 mg/dl (70-99); Potassium 3.3 mmol/L (3.5-5.1); Sodium 138 mmol/L (135-145); Total Protein 5.9 g/dl (6.3-8.2); eGFR > 60.00
[2025-04-29 07:25] VITALS: BP 97/66
[2025-04-29] MEDS: ULTRAM 100 MG PO (07:53)
[2025-04-29] MEDS: CYMBALTA DELAYED RELEASE 60 MG PO (07:53)
[2025-04-29] MEDS: PROTONIX IV 40 MG IV (07:53)
[2025-04-29] MEDS: NEURONTIN 400 MG PO (07:53)
[2025-04-29] MEDS: NSS (PRESERVATIVE FREE) 10 ML IV (07:54)
[2025-04-29] MEDS: KCL ELIXIR 40 MEQ PO (08:56)
--- NOTE | 2025-04-29 09:17 | OR.RPT ---
Operative Report
Operative Report
Primary Surgeon: Rodger
Pre-op Diagnosis: Biliary pancreatitis
Post-op Diagnosis: Chronic cholecystitis
Procedure Performed: Laparoscopic cholecystectomy with cholangiogram
Anesthesia Type: GETA
Specimen / Cultures: Gallbladder
Estimated Blood Loss: 15cc
Complications: None immediate
Operative Findings: Gallbladder wall thickening with fibrosis, dense adhesions of pericolonic fat taken down bluntly, cholangiogram with good flow into duodenum, opacification of biliary tree and pancreatic duct without filling defects
Date of Surgery: 04/28/25
Indications: This 64F developed pancreatitis of biliary origin. Laparoscopic cholecystectomy with cholangiogram was elected.
Description of procedure: The patient was placed on the operating table in the supine position. General anesthesia was induced. A time-out was completed verifying correct patient, procedure, site, positioning, and special equipment prior to
beginning this procedure. An orogastric tube was placed. The abdomen was prepped and draped in the usual sterile fashion. A stab incision was made in left upper quadrant and the Veress needle was inserted. Proper position was confirmed by aspiration
and saline meniscus test. The abdomen was insufflated with carbon dioxide to a pressure of 12 mmHg. The patient tolerated insufflation well.
A 5mm optical trocar was then inserted at the umbilicus. The laparoscope was inserted and the abdomen inspected. No injuries from initial trocar placement or Veress needle insertion were noted. Additional trocars were then inserted in the following
locations: a 12-mm trocar in the right epigastrium and two 5-mm trocars along the right costal margin. The abdomen was inspected and no abnormalities were found. The table was placed in the reverse Trendelenburg position with the right side up.
Dense adhesions from pericolonic fat to the gallbladder fundus were bluntly swept down. The dome of the gallbladder was grasped with an atraumatic grasper and retracted over the dome of the liver. The infundibulum was also grasped with an atraumatic
grasper and retracted toward the right lower quadrant. This maneuver exposed Calot�s triangle. The peritoneum overlying the gallbladder infundibulum was then incised and the cystic duct and cystic artery identified and circumferentially dissected so
that a clear view of the liver was achieved through a window between the cystic duct an cystic artery. At this time, the only two structures going into the gallbladder were the cystic artery and cystic duct.
A clip was placed on the cystic duct close to the neck of the gallbladder. A tanya was made in the cystic duct and a cholangiogram catheter threaded. A cholangiogram was obtained and showed good flow of bile into the duodenum, an intact biliary tree,
and absence of any filling defects
The cystic duct and cystic artery were then doubly clipped and divided close to the gallbladder. The gallbladder was then dissected from its peritoneal attachments by electrocautery. Hemostasis was assured and the gallbladder and contained stones
were removed using an endoscopic retrieval bag placed through the subxiphoid port. The gallbladder was passed off the table as a specimen. The gallbladder fossa was copiously irrigated with saline and hemostasis was again assured. There was no
evidence of bleeding from the gallbladder fossa or cystic artery or leakage of the bile from the cystic duct stump. The subxiphoid trocar site was closed at the fascial level laparoscopically with 2-0 PDS. Secondary trocars were removed under direct
vision and noted to be hemostatic. The laparoscope was withdrawn and the umbilical trocar removed. The abdomen was allowed to collapse. The skin was closed with subcuticular sutures of 4-0 monocryl and topical skin adhesive. The orogastric tube was
removed.
The patient tolerated the procedure well and was taken to the postanesthesia care unit in stable condition.
--- NOTE | 2025-04-29 09:37 | W.PN.UPDATE ---
Update Note
Progress Note Update
Patient underwent laparoscopic cholecystectomy with IOC. IOC negative. Continue further care per surgery. will s/o
--- NOTE | 2025-04-29 11:07 | W.PN.HOSP.TC ---
Today's Communication/Plan
-
Tolerating diet, to be discharged home today
Assessment / Plan
Assessment / Plan
Impression:
64-year-old with past medical history of VP [employer] shunt, hypertension, hyperlipidemia who presents to the emergency department with abdominal pain as well as urinary symptoms and found to have acute cystitis, possible cholangitis with elevated LFTs and
bilirubin as well as acute cystitis on the CT scan.
Ultrasound abdomen done showed :gallbladder sludge. Borderline thickened gallbladder wall. No findings to suggest pericholecystic fluid or biliary tract dilatation. Negative sonographic Allen's sign.
No findings to confirm choledocholithiasis.
Findings suggesting diffuse fatty liver.
Pain slightly improved, started on clear liquid diet
Plan for lap rebecca on Saturday 04/28
Assessment/plan:
Acute Cholecystitis/acute cholangitis
High-grade cholecystitis confirmed on imaging.
On arrival: afebrile, BP 120/64, HR 97, SpO? 97% RA.
Initial labs: WBC 12.5, Hgb 13.9, Plt 230. Electrolytes: Na 133, K 3.4, Cl 96, HCO? 26. BUN/Cr normal. Glucose 147.
LFTs: Total bilirubin 4.7, AST 1000, ALT 619, Alk Phos 200. Lipase >4000
CT abdomen/pelvis: acute cholecystitis with mild pericholecystic fluid and inflammation; mild biliary dilation and bile duct wall enhancement (possible cholangitis); mild diffuse hepatic steatosis; acute cystitis with mild bladder wall thickening.
Hemodynamically stable, nontoxic-appearing. Concern for biliary obstruction and possible cholangitis given elevated bilirubin and transaminases.
Allergy: remote penicillin allergy (>30 years ago).
History: VP [employer]ODUCTION shunt, multiple MRIs tolerated.
Plan:
Admitted to [facility]
NPO for now
IV Zosyn
Blood cultures
Pain control and antiemetics
IV fluids.
MRCP was not able to be done secondary to VP [employer] shunt, ultrasound abdomen pending
GI consulted/ Surgery consulted, possible transfer to tertiary center.
04/26.
Ultrasound abdomen done showed :gallbladder sludge. Borderline thickened gallbladder wall. No findings to suggest pericholecystic fluid or biliary tract dilatation. Negative sonographic Allen's sign.
No findings to confirm choledocholithiasis.
Findings suggesting diffuse fatty liver.
Pain slightly improved, started on clear liquid diet
04/27
Full liquid diet, lap rebecca in a.m.
04/28
Lap rebecca today
04/29
Tolerating diet, to be discharged home today
Acute pancreatitis.
Secondary to above.
Elevated lipase.
No CT finding of acute pancreatitis.
Continue n.p.o., IV fluid, IV antibiotics
04/26
CLD
04/27
Full liquid diet, lap rebecca in a.m.
04/29
Dc home
Hyponatremia.
Improved
Hypokalemia.
Repleted
Acute Cystitis
cystitis noted on imaging; no stones, no urinary obstruction.
Plan:
Urine culture shows no growth.
Continue IV Zosyn as above
Anemia.
Possible dilutional.
Continue to monitor
CODE STATUS: Full code
DVT prophylaxis: Lovenox
Diet: regular
Disposition: Tolerating diet, to be discharged home today
Total time spent on today's encounter was 55 minutes which included time spent in counseling the patient/family regarding diagnosis and treatment plan as listed above, goals of care, and symptom management. Case was discussed with nursing staff,
specialists, and care coordinators/case management. All labs and imaging personally reviewed by me. Remainder the time spent in detailed review of previous records, lab data, imaging, and other medical provider documentation.
Part of this note was created using voice recognition system. Occasional wrong word or �sound alike� substitutions may have inadvertently occurred due to the inherent limitations of voice recognition software. If noted kindly bring it to my
attention for correction.
Anticipated Discharge: Today
Subjective/Interval History
-
Date of Service: April 29, 2025
Patient seen and examined at bedside, denies any chest pain or shortness of breath, improved abdominal pain, no nausea, no vomiting, no diarrhea or constipation.
Objective Data
-
Labs:
Laboratory Results
04/29/25
05:58
WBC 10.0
Hgb 10.9 L
Hct 31.7 L
Plt Count 251 D
Sodium 138
Potassium 3.3 L
Chloride 102
Carbon Dioxide 29
BUN 5 L
Creatinine 0.8
Glucose 112 H
Calcium 8.8
Total Bilirubin 0.4
AST 63 H
ALT 105 H
Alkaline Phosphatase 127 H
Vital Signs:
Vital Signs
Temp Pulse Resp BP Pulse Ox
98.7 F 76 16 97/66 98
04/29/25 07:25 04/29/25 07:25 04/29/25 07:25 04/29/25 07:25 04/29/25 07:48
I&O
04/28/25 04/29/25 04/30/25
06:59 06:59 06:59
Intake Total 630 / 630 1740 / 1740 480 / 480
Balance 630 / 630 1740 / 1740 480 / 480
Physical Exam
-
General: Well Developed, Well Nourished, No Apparent Distress and Comfortable
HEENT: Normocephalic, Atraumatic, Moist Mucous Membranes, No Ptosis, PERRLA and Nose Appears Normal
Respiratory: Clear to Auscultation and Non Labored Respirations
Cardiac: Regular Rhythm and S1/S2
Breast: Deferred by me
GI: Soft, Nondistended, Normal Bowel Sounds and Tender (Right upper quadrant)
Genito-urinary: No Costovertebral Tender
Musculoskeletal: No Clubbing, No Cyanosis and No Edema
Skin: Warm
Neuro: Awake, Alert, Oriented, AO x 3 and No Motor Deficits
Psych: Calm
[2025-04-29 11:20] VITALS: BP 111/70
--- NOTE | 2025-04-29 11:20 | W.DCSUMMARY ---
Discharge Summary
Discharge Data
Date of Admission: 04/24/25
Date of Discharge: 04/29/25
Total time spent discharging patient (in min): 40
-
Pending Results: No
Hospital Course
Hospital course
64-year-old with past medical history of [employer] shunt, hypertension, hyperlipidemia who presents to the emergency department with abdominal pain as well as urinary symptoms and found to have acute cystitis, possible cholangitis with elevated LFTs and
bilirubin as well as acute cystitis on the CT scan.
Ultrasound abdomen done showed :gallbladder sludge. Borderline thickened gallbladder wall. No findings to suggest pericholecystic fluid or biliary tract dilatation. Negative sonographic Allen's sign.
No findings to confirm choledocholithiasis.
Findings suggesting diffuse fatty liver.
Pain slightly improved, started on clear liquid diet
Plan for lap rebecca on Saturday 04/28
Tolerating diet after surgery, will be discharged home in stable condition.
During hospitalization patient was treated from the following
Acute Cholecystitis/acute cholangitis
High-grade cholecystitis confirmed on imaging.
On arrival: afebrile, BP 120/64, HR 97, SpO? 97% RA.
Initial labs: WBC 12.5, Hgb 13.9, Plt 230. Electrolytes: Na 133, K 3.4, Cl 96, HCO? 26. BUN/Cr normal. Glucose 147.
LFTs: Total bilirubin 4.7, AST 1000, ALT 619, Alk Phos 200. Lipase >4000
CT abdomen/pelvis: acute cholecystitis with mild pericholecystic fluid and inflammation; mild biliary dilation and bile duct wall enhancement (possible cholangitis); mild diffuse hepatic steatosis; acute cystitis with mild bladder wall thickening.
Hemodynamically stable, nontoxic-appearing. Concern for biliary obstruction and possible cholangitis given elevated bilirubin and transaminases.
Allergy: remote penicillin allergy (>30 years ago).
History: [employer] shunt, multiple MRIs tolerated.Plan:
Admitted to [facility]
NPO for now
IV Zosyn
Blood cultures
Pain control and antiemetics
IV fluids.
MRCP was not able to be done secondary to [employer] shunt, ultrasound abdomen pending
GI consulted/ Surgery consulted, possible transfer to tertiary center.04/26.
Ultrasound abdomen done showed :gallbladder sludge. Borderline thickened gallbladder wall. No findings to suggest pericholecystic fluid or biliary tract dilatation. Negative sonographic Allen's sign.
No findings to confirm choledocholithiasis.
Findings suggesting diffuse fatty liver.
Pain slightly improved, started on clear liquid diet
04/27
Full liquid diet, lap rebecca in a.m.
04/28
Lap rebecca today
04/29
Tolerating diet, to be discharged home today
Acute pancreatitis.
Secondary to above.
Elevated lipase.
No CT finding of acute pancreatitis.
Continue n.p.o., IV fluid, IV antibiotics
04/26
CLD
04/27
Full liquid diet, lap rebecca in a.m.
04/29
Dc home
Hyponatremia.
Improved
Hypokalemia.
Repleted
Acute Cystitis
cystitis noted on imaging; no stones, no urinary obstruction.
Plan:
Urine culture shows no growth.
Continue IV Zosyn as above
Anemia.
Possible dilutional.
Continue to monitor
CODE STATUS: Full code
DVT prophylaxis: Lovenox
Diet: regular
Disposition: Tolerating diet, to be discharged home today.
Total time spent on today's encounter was 40 minutes which included time spent in counseling the patient/family regarding diagnosis and treatment plan as listed above, goals of care, and symptom management. Case was discussed with nursing staff,
specialists, and care coordinators/case management. All labs and imaging personally reviewed by me. Remainder the time spent in detailed review of previous records, lab data, imaging, and other medical provider documentation.
Anticipated Discharge: Today
Discharge Plan
-
Patient Disposition: Home (Routine Discharge)
Discharge Diagnosis/Procedures: Biliary pancreatitis
Chronic cholecystitis
Status post laparoscopic cholecystectomy with cholangiogram
Diet: As tolerated
Additional Diets: Switch to a low fat diet if you notice loose stools after surgery
Activity: No strenuous activity
Additional Activity: Do not lift over 20lbs for the next 2-3 weeks
Driving Restrictions: No driving for 24 hours
Bathing Restrictions: OK to Shower
Wound Care: Glue dressings will flake off incisions over the next 2-3 weeks. Do not soak in tubs or pools for the next 2-3 weeks
Activity Restrictions/Additional Instructions:
Call your surgeon if you have a fever >100.5, nausea with vomiting or worsening abdominal pain
Referrals:
PCP [Other] - in one week
Javy Soares MD [Active, Surgical] - in two to four weeks
Prescriptions:
New
acetaminophen 325 mg Tablet
650 mg PO Q4HPRN PRN (Reason: mild pain/FRANCO/temp> 100.4F) Qty: 30 0RF
tramadol 50 mg Tablet
50 mg PO Q6HPRN PRN (Reason: mod pain) Qty: 15 0RF
Continued
paroxetine HCl 10 mg Tablet
10 mg PO DAILY
gabapentin 400 mg Capsule
400 mg PO TID
pantoprazole 40 mg Tablet,Delayed Release (Dr/Ec)
40 mg PO DAILY
cyclobenzaprine 5 mg Tablet
5 mg PO TID
rosuvastatin 40 mg Tablet
40 mg PO DAILY
duloxetine 60 mg Capsule,Delayed Release(Dr/Ec)
60 mg PO BID
zolpidem 12.5 mg Tablet,Ext Release Multiphase
12.5 mg PO HS
Discharge Orders:
Discharge Patient (As Directed); Ordered 04/29/25
Ordered By: Baudilio Stover
Discharge Date and Time
Print Language: BRITISH
--- NOTE | 2025-04-29 11:26 | W.PN.GS2 ---
Today's Communication / Plan
-
dispo planning
Assessment / Plan
-
64 yo female presenting with likely gallstone mediated pancreatitis with chronic cholecystics
POD #1 lap cholecystectomy with negative IOC
Bilirubin elevated on presentation but normalized
Mild transaminitis present, not unexpected
Doing well post operatively, following expected course
Plan:
OK for d/c from surgical standpoint, updated d/c instructions
Diet as tolerated
PRN analgesics
No further ABX warranted from surgical standpoint
D/W hospitalist on nursing unit
Subjective Data
-
Date of Service: April 29, 2025
Pt seen and examined at bedside with Dr. Tovar. Denies n/v. Tolerating diet. Passing gas/stools. Some incisional discomfort but not much pain. Some drainage from umbilical incision overnight.
Objective Data
-
Intake and Output
04/28/25 04/29/25 04/30/25
06:59 06:59 06:59
Intake Total 630 / 630 1740 / 1740 480 / 480
Balance 630 / 630 1740 / 1740 480 / 480
Intake:
Oral fluids 480 / 480 1440 / 1440 480 / 480
IV fluids (Total) 50 / 50 150 / 150
Normosol 100 / 100
IV piggybacks 100 / 100 150 / 150
Other:
Number of approximated MODERATE 1 3 1
amounts of urine
Number of approximated LARGE 2
amounts of urine
Number of unmeasured liquid
stools
Rectum 2
Vital Signs
Temp Pulse Resp BP Pulse Ox
98.2 F 88 16 111/70 98
04/29/25 11:20 04/29/25 11:20 04/29/25 11:20 04/29/25 11:20 04/29/25 11:20
Lab Results
04/29/25 05:58
04/29/25 05:58
Calcium 8.8 mg/dl (8.4-10.2) 04/29/25 05:58
Magnesium 1.8 mg/dl (1.6-2.3) 04/25/25 05:51
Total Bilirubin 0.4 mg/dl (0.2-1.3) 04/29/25 05:58
Direct Bilirubin 2.0 mg/dl (0.0-0.4) H 04/25/25 05:51
AST 63 U/L (14-36) H 04/29/25 05:58
ALT 105 U/L (0-35) H 04/29/25 05:58
Alkaline Phosphatase 127 U/L (38-126) H 04/29/25 05:58
Total Protein 5.9 g/dl (6.3-8.2) L 04/29/25 05:58
Albumin 3.6 g/dl (3.5-5.0) 04/29/25 05:58
Physical Exam
-
NAD
ABD soft, nd, expected incisional tenderness
Lap sites with intact glue, dressing with minimal old ssf on it over periumbilical incision present (removed with no further drainage noted)
[2025-04-29] MEDS: FLUZONE (6 mos+) 2025-2026 FORMULA 0.5 ML IM (11:43)
--- NOTE | 2025-04-29 12:37 | CM ---
Home today no needs.
Plan; Home no needs.
== END 2025-04-29 13:19 | disposition home or self-care (01) | DRG 417 ==
LOC: 2 SOUTH 21:55
PROVIDERS: Emergency Medicine; Nurse Practitioner Adult Health; Physician Assistant; Surgery; ADMITTING PHYSICIAN Internal Medicine; ATTENDING PHYSICIAN General Practice; CONSULT PHYSICIAN Internal Medicine Gastroenterology; CONSULT PHYSICIAN Surgery; EMERGENCY PHYSICIAN Emergency Medicine
PROC: 3E02340 Introduction of Influenza Vaccine into Muscle, Percutaneous Approach (ICD-10-PCS; 2025-04-29)
PROC: 0FT44ZZ Resection of Gallbladder, Percutaneous Endoscopic Approach (ICD-10-PCS; 2025-04-29)
PROC: BF111ZZ Fluoroscopy of Biliary and Pancreatic Ducts using Low Osmolar Contrast (ICD-10-PCS; 2025-04-29)
DX: K80.10 Calculus of gallbladder with chronic cholecystitis without obstruction (principal); K85.10 Biliary acute pancreatitis without necrosis or infection; E87.1 Hypo-osmolality and hyponatremia; N30.00 Acute cystitis without hematuria; N17.9 Acute kidney failure, unspecified; R78.81 Bacteremia; R18.8 Other ascites; I10 Essential (primary) hypertension; E78.00 Pure hypercholesterolemia, unspecified; E03.9 Hypothyroidism, unspecified; E87.6 Hypokalemia; D64.9 Anemia, unspecified; D72.829 Elevated white blood cell count, unspecified; K59.00 Constipation, unspecified; K21.9 Gastro-esophageal reflux disease without esophagitis; R74.01 Elevation of levels of liver transaminase levels; K66.0 Peritoneal adhesions (postprocedural) (postinfection); Z79.899 Other long term (current) drug therapy; Z98.2 Presence of cerebrospinal fluid drainage device; Z87.440 Personal history of urinary (tract) infections
CPT/HCPCS: 74018; 74177; 74300; 76000; 76700; 80048; 80053; 80076; 81003; 81015; 83605; 83690; 83735; 85025; 85027; 85610; 87040; 87086; 88304; 90656; 96365; 96375; 99285; A4300; G0008; Q9967